=== PATIENT | male | born 1940 | race Two or more races ===

== ENCOUNTER 2020-11-07 09:00 | Outpatient (REF) | payer MEDICARE, SELFPAY ==
[2020-11-07 11:33] LABS: Hematocrit 43.8 % (42-52); Hemoglobin 14.7 g/dl (14.0-18.0); Mean Corpuscular HGB Conc 33.6 g/dl (31.0-36.0); Mean Corpuscular Hemoglobin 31.1 pg (27.0-33.0); Mean Corpuscular Volume 92.6 fL (80-98); Mean Platelet Volume 10.7 fL (9.4-12.4); Platelet Count 210 X10*3/uL (160-400); Red Blood Count 4.73 X10*6/uL (4.60-5.80); Red Cell Distribution Width 12.2 % (11.0-16.0)
[2020-11-07 11:43] LABS: Alanine Aminotransferase 24 U/L (0-40); Albumin Level 4.2 g/dL (3.5-5.0); Alkaline Phosphatase 71 U/L (39-117); Anion Gap 12 (12-20); Aspartate Amino Transferase 34 U/L (5-37); Bilirubin Total 0.9 mg/dL (0.0-1.0); Blood Urea Nitrogen 16 mg/dL (9-16); Calcium 8.9 mg/dL (8.4-10.2); Carbon Dioxide 30 mmol/L (22-29); Chloride 102 mmol/L (96-108); Cholesterol 162 mg/dL; Estimated Glomerular Filt Rate > 60; Glucose Fasting 96 mg/dL (60-99); HDL Cholesterol 44 mg/dL; LDL Cholesterol Calculated 95 mg/dl; Potassium 4.9 mmol/l (3.3-5.1); Sodium 139 mmol/L (135-145); Total Protein 6.8 g/dL (6.5-8.0); Triglycerides 119 mg/dL
== END 2020-11-07 09:01 | disposition home or self-care (01) ==
LOC: HO.HMGCLDS 09:00
PROVIDERS: PCP Internal Medicine; Visit Provider Internal Medicine
DX: E78.5 Hyperlipidemia, unspecified (principal); I10 Essential (primary) hypertension
CPT/HCPCS: 36415; 80053; 80061; 85027

== ENCOUNTER 2021-05-07 10:12 | Outpatient (REF) | payer MEDICARE, SELFPAY ==
--- NOTE | ~2021-05-07 | XR_ITS ---
EXAMINATION: XR CHEST CLINICAL INFORMATION: Chest pain COMPARISON: None TECHNIQUE: 2 views of the chest were obtained. FINDINGS: The lungs are well-expanded and clear of acute pneumonic process. The heart size and pulmonary vascularity is normal. There are old healed right posterior fifth, sixth, seventh and left posterior fourth, fifth, sixth rib fractures. No acute rib fractures seen.. XR/XR chest 2V IMPRESSION: Unremarkable chest exam. Bilateral multiple posterior rib healed fractures.
[2021-05-07 11:37] LABS: Hematocrit 41.1 % (42-52); Mean Corpuscular HGB Conc 34.1 g/dl (31.0-36.0); Mean Corpuscular Hemoglobin 31.2 pg (27.0-33.0); Mean Corpuscular Volume 91.5 fL (80-98); Mean Platelet Volume 10.6 fL (9.4-12.4); Platelet Count 237 X10*3/uL (160-400); Red Blood Count 4.49 X10*6/uL (4.60-5.80); Red Cell Distribution Width 12.6 % (11.0-16.0); White Blood Count 4.1 X10*3/uL (4.8-10.8)
[2021-05-07 11:54] LABS: Alanine Aminotransferase 21 U/L (0-40); Albumin Level 4.1 g/dL (3.5-5.0); Alkaline Phosphatase 82 U/L (39-117); Anion Gap 11 (12-20); Aspartate Amino Transferase 28 U/L (5-37); Bilirubin Total 0.6 mg/dL (0.0-1.0); Blood Urea Nitrogen 14 mg/dL (9-16); Calcium 9.2 mg/dL (8.4-10.2); Carbon Dioxide 29 mmol/L (22-29); Chloride 104 mmol/L (96-108); Estimated Glomerular Filt Rate > 60; Glucose Fasting 84 mg/dL (60-99); Potassium 4.2 mmol/L (3.3-5.1); Sodium 140 mmol/L (135-145); Total Protein 6.8 g/dL (6.5-8.0)
== END 2021-05-07 10:13 | disposition home or self-care (01) ==
LOC: HO.HMGCLDS 10:12
PROVIDERS: PCP Internal Medicine; Visit Provider Internal Medicine
DX: I10 Essential (primary) hypertension (principal); R07.9 Chest pain, unspecified; N40.0 Benign prostatic hyperplasia without lower urinary tract symptoms
CPT/HCPCS: 36415; 71046; 80048; 80053; 85027

== ENCOUNTER 2022-05-29 10:11 | Outpatient (REF) | payer MEDICARE, SELFPAY ==
[2022-05-29 11:37] LABS: MANUAL DIFF FLAG NO
[2022-05-29 11:49] LABS: Basophils Percent Auto 0.8 % (0-2); Eosinophils Absolute Auto 0.1 X10*3/uL (0.0-0.4); Eosinophils Percent Auto 2.4 % (0-4); Hematocrit 37.8 % (42.0-52.0); Hemoglobin 12.9 g/dl (14.0-18.0); Imm Gran Abs Auto 0.01 X10*3/uL (0.00-0.03); Imm Gran Pct Auto 0.3 % (0.0-0.4); Lymphocytes Absolute Auto 1.2 X10*3/uL (1.2-4.9); Lymphocytes Percent Auto 31.5 % (20-40); Mean Corpuscular HGB Conc 34.1 g/dl (31.0-36.0); Mean Corpuscular Hemoglobin 30.9 pg (27.0-33.0); Mean Corpuscular Volume 90.4 fL (80.0-98.0); Mean Platelet Volume 10.5 fL (9.4-12.4); Monocytes Absolute Auto 0.4 X10*3/uL (0.1-1.2); Neutrophils Absolute Auto 2.1 x10*3/uL (2.0-8.3); Platelet Count 194 X10*3/uL (160-400); Red Blood Count 4.18 X10*6/uL (4.60-5.80); Red Cell Distribution Width 12.2 % (11.0-16.0); White Blood Count 3.8 X10*3/uL (4.8-10.8)
[2022-05-29 12:31] LABS: TSH reflex Free T4 2.13 uIU/mL (0.32-4.0)
[2022-05-29 12:35] LABS: Alanine Aminotransferase 23 U/L (0-40); Albumin Level 4.4 g/dL (3.5-5.0); Alkaline Phosphatase 78 U/L (39-117); Anion Gap 17 (12-20); Aspartate Amino Transferase 34 U/L (5-37); Bilirubin Total 1.1 mg/dL (0.0-1.0); Blood Urea Nitrogen 20 mg/dL (9-16); Calcium 9.4 mg/dL (8.4-10.2); Carbon Dioxide 27 mmol/L (22-29); Chloride 105 mmol/L (96-108); Cholesterol 186 mg/dL; Estimated Glomerular Filt Rate > 60; Glucose Fasting 105 mg/dL (60-99); HDL Cholesterol 46 mg/dL; LDL Cholesterol Calculated 112 mg/dl; Potassium 4.7 mmol/L (3.3-5.1); Sodium 144 mmol/L (135-145); Total Protein 7.2 g/dL (6.5-8.0); Triglycerides 143 mg/dL
== END 2022-05-29 10:12 | disposition home or self-care (01) ==
LOC: HO.HMGCLDS 10:11
PROVIDERS: PCP Internal Medicine; Visit Provider Internal Medicine
DX: Z00.00 Encounter for general adult medical examination without abnormal findings (principal); E78.5 Hyperlipidemia, unspecified; I10 Essential (primary) hypertension
CPT/HCPCS: 36415; 80053; 80061; 84443; 85025

== ENCOUNTER 2022-06-11 07:24 | Outpatient (REF) | payer MEDICARE, SELFPAY ==
--- NOTE | ~2022-06-11 | MR_ITS ---
EXAMINATION: MR LUMBAR SPINE WITHOUT CONTRAST CLINICAL INFORMATION: 81-year-old with low back pain and left sided sciatica. COMPARISON: None TECHNIQUE: MRI of the lumbar spine was obtained using routine sequences without contrast. FINDINGS: Coronal Alignment: Slight mid lumbar dextrocurvature, minimally convexed to the right at L2-L3. Sagittal Alignment: Normal. Lumbosacral Junction: Normal. Five (5) nonrib-bearing lumbar-type vertebral bodies. Vertebral Bodies: Normal height. Disc Spaces and Endplates: Mild disc space height loss at L5-S1 with disc desiccation and right paravertebral spondylosis. Minimal disc space height loss at L4-L5 with disc desiccation and mild disc space height loss asymmetric to the left at L3-L4 with spondylosis and mild disc desiccation. Disc desiccation at L1-L2 and L2-L3 without significant disc space height loss with minor spondylosis at these levels and mild spondylosis of the T12-L1 and T11-T12. [id number]-[id number] disc space height loss asymmetric to the right at T11-T12 with disc desiccation. Spinal Canal: No abnormal developmental findings. Bone Marrow: No significant marrow-replacing process or bone marrow edema. There is a 1.1 cm benign vertebral hemangioma in the L1 vertebral body and a subcentimeter benign vertebral hemangioma in the T12 vertebral body. Conus Medullaris: Terminates at L1. Morphology and signal is normal. Intradural Nerve Roots: Within normal limits. L5-S1: Mild disc bulging and right posterolateral disc osteophyte complex noted with disc bulging contacting the S1 nerve root sleeves bilaterally and ventral thecal sac without nerve root compression or displacement. Mild ligament of flavum thickening noted with [id number] facet arthropathy right more the left without significant canal stenosis. Mild right-sided neural foraminal stenosis is noted without neural impingement. 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 L4-L5: Mild disc bulging and a small central annular fissure with slight flattening the ventral dural sac. Disc bulging contacts the origin of the left L5 nerve root sleeve. There is moderate facet arthropathy without significant canal stenosis. There is mild right-sided neural foraminal stenosis without neural impingement. L3-L4: There is mild disc bulging and a superimposed left subarticular extruded disc herniation with both cephalad and caudal migration with flattening of the ventral dural sac and marked narrowing of the left subarticular zone. Ligamentum flavum thickening and moderate bilateral facet hypertrophic changes are noted with mild central canal narrowing. There is impingement on the traversing left L4 nerve root in the subarticular recess. Mild bilateral foraminal narrowing is also noted without exiting neural impingement. L2-L3: Small bilateral subarticular to foraminal disc protrusions are noted with mild facet arthropathy without significant canal stenosis. There is mild left-sided foraminal narrowing without neural impingement. L1-L2: Normal disc contour. Mild facet hypertrophic changes bilaterally and mild ligamentum flavum thickening without significant canal or neuroforaminal stenosis. There are perineural cysts in the neural foramina on the left in the visualized lower thoracic spine. Paraspinal/Retroperitoneal: Marked prostatic enlargement indenting and elevating the bladder base with bladder wall thickening. There is a 3.5 cm slightly T1 hyperintense intense, T2 hypointense mass arising from the medial cortex of the lower pole the left kidney unchanged in size from CT abdomen of 09/14/2019. Partially imaged complex-appearing cystic structure arising from the posterolateral cortex of the left kidney measuring 1.7 cm likely corresponding to a cystic lesion noted on previous CT. Partially imaged 2 cm exophytic simple-appearing cyst arising from the anterolateral cortex of the upper pole of the left kidney which has increased in size from previous CT. Partially imaged 1.6 cm simple-appearing cortical cyst posterior cortex right mid kidney increased in size from previous exam. The paravertebral soft tissues appear grossly unremarkable. MR/MR lumbar spine wo con IMPRESSION: 1. Multilevel discogenic degenerative changes and spondylosis as described above, with multilevel disc bulging and a posterior element hypertrophic degenerative changes. Superimposed left subarticular extruded disc herniation at L3-L4 with impingement on the traversing left L4 nerve root in the subarticular recess with mild central canal stenosis at this level. 2. Mild degrees of multilevel foraminal narrowing as described above without exiting neural impingement. 3. Indeterminate left renal mass unchanged in size from previous CT abdomen and multiple simple-appearing cysts in both kidneys, and 1 complex appearing cyst on the left. Follow-up as per clinical indications. 4. Prostatic enlargement indenting and elevating the base of the urinary bladder and possible bladder wall thickening.
== END 2022-06-11 07:25 | disposition home or self-care (01) ==
LOC: HO.MRI 07:24
PROVIDERS: Visit Provider Internal Medicine
DX: M54.30 Sciatica, unspecified side (principal)
CPT/HCPCS: 72148

== ENCOUNTER → 2022-06-12 10:15 | Outpatient (REF) | payer MEDICARE, SELFPAY ==
--- NOTE | 2022-06-12 10:45 | CA_ITS ---
Transthoracic Echocardiogram Patient (Last, First, Middle): DevanteOct, Gender: Male Date of : 1940 Age: 81 Procedure Date: 06/12/2022 Procedure Type: Transthoracic Echocardiogram Location: OP Height: 170.18 cm Weight: 79.38 kg BSA: 1.91 m2 Heart Rate: 66 bpm BP: 128 / 85 mmHg Analyzer Sales: TONIO Referring MD: Norah Louie MD Symptoms: R07.9 - Chest pain, unspecified Study Quality: Fair ECG Rhythm: Sinus Conclusions: - The left ventricular systolic function is normal. The visually estimated ejection fraction is between 55-60%. - There is moderately increased left ventricular wall thickness. - No obvious valvular pathology seen on this study. Findings Left Ventricle Normal left ventricular cavity size. There is moderately increased left ventricular wall thickness. The left ventricular systolic function is normal. The visually estimated ejection fraction is between 55-60%. There is no evidence of regional wall motion abnormalities. E/E prime ratio is between 8 and 15 consistent with indeterminate filling pressures. Evidence suggests grade I (mild) diastolic dysfunction. Right Ventricle Normal right ventricular cavity size and systolic function. Atria Both atria are normal in size. Aortic Valve There is a normal trileaflet aortic valve. There is mild calcification of the aortic valve. There is no aortic valve stenosis. There is no aortic valve regurgitation. Mitral Valve The mitral valve appears normal. There is trace mitral valve regurgitation. There is no mitral valve stenosis. Pulmonic Valve The pulmonic valve is likely normal. Tricuspid Valve Normal tricuspid valve structure. There is no tricuspid valve regurgitation. Tricuspid regurgitation envelope is inadequate for calculation of right ventricular systolic pressure. Great Vessels The asc aorta is normal in size. Venous The inferior vena cava is normal in size and collapses greater than 50% with inspiration. Pericardium/Pleural There is no evidence of pericardial effusion. Prior Study Comparison No significant change compared to prior study dated: 09/02/2019. Recommendations, Care & Conclusions No obvious valvular pathology seen on this study. Measurements 2D Linear Measurements IVSd: 1.42 0.6-0.9/0.6-1.0 cm LVIDd: 3.09 3.9-5.3/4.2-5.9 cm LVIDd Index: 1.62 2.4-3.2/2.2-3.1 cm/m2 LVIDs: 1.82 2.0-3.6 cm LVPWd: 1.39 0.7-1.1 cm LA Diam: 3.00 2.7-3.8/3.0-4.0 cm LAIDs Index: 1.57 1.5-2.3 cm/m2 LV Mass: 182.91 67-162/88-224 g LV Mass Index: 95.76 43-95/49-115 g/m2 LVOT Diam: 2.10 3.0+(-)1.3 cm 2D Systolic Function EF 4C: 51.10 >55% EF 2C: 57.30 >55% EF BiP: 52.30 >55% Mitral Valve MV Pk E: 0.78 MV PK A: 1.18 MV Decel Time: 323.00 E/A: 0.70 E'Lateral: 5.98 E'Medial: 5.44 E/E' Med: 14.30 E/E' Lat: 13.00 PHT: 95.00 MVA PHT: 2.32 Decel Amador: 2.41 Aortic Valve AoV Pk Irving: 1.15 AoV Mn Irving: 0.84 AoV VTI: 0.25 AoV Pk Grad: 5.00 Aov Mn Grad: 3.00 GISSELLE Cont.VTI: 2.53 LVOT LVOT Pk Irving: 0.89 LVOT Mn Irving: 0.64 LVOT VTI: 0.19 LVOT Pk Grad: 3.00 LVOT Mn Grad: 2.00 LVOT Diam: 2.10 LVOT Area: 3.46 Diastolic Function MV Pk E: 0.78 MV Pk A: 1.18 E/A: 0.70 E'Medial: 5.44 E/E' Med: 14.30 E' Laterial: 5.98 E/E' Lat: 13.00 Right Ventricle TAPSE (mm): 19.50 TVS' Irving: 11.10 Tricuspid Valve RA Press: 3.00 Great Vessels Aorta Sinus of Valsalva: 3.50 2.0-3.5 cm Ao Asc: 3.30 2.1-3.4 cm Pulmonary Valve PV Pk Irving: 1.18 Peak PV Grad: 6.00 Updated in Other Vendor System with Status of Final Teodoro Benz MD electronically signed on 06/13/2022 12:54:35 PM with status of Final
== END ==
LOC: HO.CARD 10:15
PROVIDERS: PCP Internal Medicine; Visit Provider Internal Medicine
DX: R07.9 Chest pain, unspecified (principal); I10 Essential (primary) hypertension
CPT/HCPCS: 93306

== ENCOUNTER 2023-05-25 08:24 | Outpatient (REF) | payer MEDICARE, SELFPAY ==
[2023-05-25 11:24] LABS: MANUAL DIFF FLAG NO
[2023-05-25 11:49] LABS: Basophils Absolute Auto 0.1 X10*3/uL (0.0-0.2); Basophils Percent Auto 1.1 % (0-2); Eosinophils Absolute Auto 0.2 X10*3/uL (0.0-0.4); Eosinophils Percent Auto 3.5 % (0-4); Hematocrit 41.1 % (42.0-52.0); Hemoglobin 13.8 g/dl (14.0-18.0); Imm Gran Abs Auto 0.02 X10*3/uL (0.00-0.03); Imm Gran Pct Auto 0.4 % (0.0-0.4); Lymphocytes Absolute Auto 1.7 X10*3/uL (1.2-4.9); Lymphocytes Percent Auto 36.4 % (20-40); Mean Corpuscular HGB Conc 33.6 g/dl (31.0-36.0); Mean Corpuscular Hemoglobin 30.9 pg (27.0-33.0); Mean Corpuscular Volume 92.2 fL (80.0-98.0); Mean Platelet Volume 10.5 fL (9.4-12.4); Monocytes Absolute Auto 0.5 X10*3/uL (0.1-1.2); Monocytes Percent Auto 9.9 % (2-11); Neutrophils Absolute Auto 2.2 x10*3/uL (2.0-8.3); Neutrophils Percent Auto 48.7 % (45-73); Platelet Count 195 X10*3/uL (160-400); Red Blood Count 4.46 X10*6/uL (4.60-5.80); Red Cell Distribution Width 12.8 % (11.0-16.0); White Blood Count 4.6 X10*3/uL (4.8-10.8)
[2023-05-25 12:14] LABS: Alanine Aminotransferase 27 U/L (0-40); Albumin Level 3.9 g/dL (3.5-5.0); Alkaline Phosphatase 77 U/L (39-117); Anion Gap 13 (12-20); Aspartate Amino Transferase 33 U/L (5-37); Bilirubin Total 0.9 mg/dL (0.0-1.0); Blood Urea Nitrogen 23 mg/dL (9-16); Calcium 9.1 mg/dL (8.4-10.2); Carbon Dioxide 24 mmol/L (22-29); Chloride 106 mmol/L (96-108); Cholesterol 168 mg/dL; Estimated Glomerular Filt Rate > 60; Glucose Fasting 97 mg/dL (60-99); HDL Cholesterol 45 mg/dL; LDL Cholesterol Calculated 103 mg/dl; Potassium 4.1 mmol/L (3.3-5.1); Sodium 139 mmol/L (135-145); Total Protein 6.8 g/dL (6.5-8.0); Triglycerides 103 mg/dL
== END 2023-05-25 08:25 | disposition home or self-care (01) ==
LOC: HO.HMGCLDS 08:24
PROVIDERS: PCP Internal Medicine; Visit Provider Internal Medicine
DX: Z00.00 Encounter for general adult medical examination without abnormal findings (principal); E78.5 Hyperlipidemia, unspecified; I10 Essential (primary) hypertension
CPT/HCPCS: 36415; 80053; 80061; 85025

== ENCOUNTER 2023-07-10 09:29 | Outpatient (AMB) | payer OTHER, SELFPAY ==
[2023-07-10 09:33] VITALS: BP 130/70; PULSE 65; O2SAT 96; BMI 29.4
--- NOTE | 2023-07-10 09:33 | A.OFFPC_ITS ---
Vital Signs 07/10/23 09:33 Height 5 ft 6 in Weight 182 lb BMI 29.4 BP 130/70 Blood Pressure Location Rt brachial Position Sitting Pulse 65 Pulse Source Pulse Oximeter Pulse Oximetry (%) 96 Oxygen Delivery Method Room Air Intake Visit Reasons: PE Intake Note: Pt is here today for PE. Allergies atorvastatin [Lipitor] Adverse Reaction (Unknown, Verified 07/10/23 09:41) muscle pain Medication List - Last Reconciled 07/10/23 by Norah Louie MD acetaminophen (Tylenol Extra Strength) 500 mg PO Q6H PRN finasteride 5 mg PO DAILY furosemide 20 mg PO BID ibuprofen 600 mg PO Q8H PRN metoprolol succinate ER 25 mg PO DAILY olmesartan 20 mg PO DAILY pravastatin 40 mg PO DAILY sertraline 50 mg PO DAILY terazosin 10 mg PO DAILY Tobacco use date assessed: 07/10/23 Fall risk assessment: No Falls in past year Last assessed Fall Risk: 07/10/23 Dental Screening Dental Screen Date: 07/10/23 Did you have a dental visit in the last 12 months?: No Did you have a dental problem in the last 6 months where you did not have access to dental care?: No Was dental information given to patient?: Patient declined HPI PE HPI Details Pt presents for PE. [facility] Medical History Chest pain Venous stasis of lower extremity Hyperlipidemia HTN (hypertension) BPH (benign prostatic hyperplasia) Surgical History H/O colonoscopy No pertinent past surgical history Family History Father No problems noted. Mother No problems noted. Social History Housing: House Patient Tobacco Use Status: Never used Tobacco e-Cigarette/Vaping Use: Never Used Second Hand Smoke Exposure: No service: No Current occupational status: retired Cognitive needs: No Hearing needs: Yes Vision needs: Yes Questionnaire Thrive Questionnaire Date Thrive assessed: 01/30/23 AUDIT C Alcohol Use Questionnaire (AUDIT-C) 1. How often do you have a drink containing alcohol?: Monthly or less 2. How many drinks containing alcohol do you have on a typical day when you are drinking?: 1 or 2 3. How often do you have six or more drinks on one occasion?: Never Total Score: 1 CHICO-7 AMB Questionnaire CHICO-7 Date CHICO - 7 assessed: 01/30/23 Source: Developed by Drs. Kristofer Tatum, Francy Covington, Akash Chávez and colleagues, with an educational lubna from [employer]. Review of Systems Const All systems reviewed & are unremarkable except as noted in HPI and below Reports no additional complaints Eyes Reports no additional complaints ENT Reports no additional complaints Card Reports no additional complaints Resp Reports no additional complaints GI Reports no additional complaints Reports no additional complaints Physical exam (Primary Care) Vital Signs: Last Vital Signs Pulse 65 07/10/23 09:33 BP 130/70 07/10/23 09:33 Pulse Ox 96 07/10/23 09:33 Oxygen Delivery Method Room Air 07/10/23 09:33 BMI result Body Mass Index 29.4 Tobacco/Smoking Status: Tobacco use Status Tobacco use date assessed 07/10/23 07/10/23 09:45 Patient Tobacco Use Status Never used Tobacco 07/10/23 09:45 e-Cigarette/Vaping Use Never Used 07/10/23 09:33 Thrive Assessment: Date of Thrive Assessment Date Thrive assessed 01/30/23 07/10/23 09:33 Const General: no acute distress HENMT Head: Yes normal to inspection Ears: hearing grossly normal bilaterally General nose exam: Normal external nose present Face and sinus: Yes normal facial exam Throat: Yes posterior oropharynx normal Eyes General: appearance normal, both eyes and all related structures Neck Neck: Yes no lymphadenopathy and Yes supple Resp Effort & Inspection: normal respiratory effort Auscultation: clear to auscultation bilaterally Cardio Rhythm: regular rhythm Heart sounds: S1 normal heart sound present and S2 normal heart sound present GI Inspection: Yes normal to inspection Palpation (GI): Soft to palpation Percussion: Yes normal to percussion Auscultation: normal bowel sounds Assessment and Plan Assessment & Plan (1) Annual physical exam: Code(s): Z00.00 - Encounter for general adult medical examination without abnormal findings Plan: well balanced diet, regular exercise (2) Hyperlipidemia: Code(s): E78.5 - Hyperlipidemia, unspecified Plan: cont statin (3) HTN (hypertension): Code(s): I10 - Essential (primary) hypertension Plan: cont meds (4) BPH (benign prostatic hyperplasia): Comment: Dr. Valdivia Code(s): N40.0 - Benign prostatic hyperplasia without lower urinary tract symptoms Plan: f/u with urology Orders: Orders Comprehensive [place]. Panel Fast 365 Days E78.5 - Hyperlipidemia, unspecified, I10 - Essential (primary) hypertension, Z00.00 - Encounter for general adult medical examination without abnormal findings Lipid Panel 365 Days E78.5 - Hyperlipidemia, unspecified, I10 - Essential (primary) hypertension, Z00.00 - Encounter for general adult medical examination without abnormal findings Complete Blood Count Auto Diff 365 Days E78.5 - Hyperlipidemia, unspecified, I10 - Essential (primary) hypertension, Z00.00 - Encounter for general adult m edical examination without abnormal findings Medications: Refilled olmesartan 20 mg PO DAILY 90 tabs 3RF pravastatin 40 mg PO DAILY 90 tabs 3RF E78.5 - Hyperlipidemia, unspecified furosemide 20 mg PO BID 180 tabs 3RF I10 - Essential (primary) hypertension sertraline 50 mg PO DAILY 90 tabs 3RF Coding Level of Care Code Est Pt Prev Care >65y(75196) Diagnoses Annual physical exam Z00.00 Hyperlipidemia E78.5 HTN (hypertension) I10 BPH (benign prostatic hyperplasia) N40.0
== END 2023-07-10 10:13 | disposition home or self-care (01) ==
PROVIDERS: PCP Internal Medicine; Visit Provider Internal Medicine
DX: Z00.00 Encounter for general adult medical examination without abnormal findings (principal); E78.5 Hyperlipidemia, unspecified; I10 Essential (primary) hypertension; N40.0 Benign prostatic hyperplasia without lower urinary tract symptoms
CPT/HCPCS: 99397

== ENCOUNTER 2024-02-05 08:42 | Outpatient (AMB) | payer OTHER, SELFPAY ==
[2024-02-05 08:45] VITALS: BP 126/68; PULSE 82; O2SAT 97; BMI 28.6
--- NOTE | 2024-02-05 08:45 | A.OFFPC_ITS ---
Vital Signs 02/05/24 08:45 Height 5 ft 6 in Weight 177 lb BMI 28.6 BP 126/68 Blood Pressure Location Lt brachial Position Sitting Pulse 82 Pulse Source Pulse Oximeter Pulse Oximetry (%) 97 Oxygen Delivery Method Room Air Intake Visit Reasons: BP elevated in [place] Intake Note: Pt is here today to f/u elevated b/p Allergies atorvastatin [Lipitor] Adverse Reaction (Unknown, Verified 02/05/24 08:46) muscle pain Medication List - Last Reconciled 02/05/24 by Norah Louie MD acetaminophen (Tylenol Extra Strength) 500 mg PO Q6H PRN finasteride 5 mg PO DAILY hydrochlorothiazide 25 mg PO DAILY ibuprofen 600 mg PO Q8H PRN metoprolol succinate ER 25 mg PO DAILY olmesartan 20 mg PO DAILY pravastatin 40 mg PO DAILY sertraline 50 mg PO DAILY terazosin 10 mg PO DAILY Tobacco use date assessed: 02/05/24 Fall risk assessment: No Falls in past year Last assessed Fall Risk: 02/05/24 Dental Screening Dental Screen Date: 02/05/24 Did you have a dental visit in the last 12 months?: No Was dental information given to patient?: Patient declined HPI BP elevated in [place] HPI Details Patient presents for the follow-up on hypertension BPH and hyperlipidemia chronic anxiety stable on current medications PFSH Medical History Chest pain Venous stasis of lower extremity Hyperlipidemia HTN (hypertension) BPH (benign prostatic hyperplasia) Surgical History H/O colonoscopy No pertinent past surgical history Family History Father No problems noted. Mother No problems noted. Social History Housing: House Patient Tobacco Use Status: Never used Tobacco e-Cigarette/Vaping Use: Never Used Second Hand Smoke Exposure: No service: No Current occupational status: retired Cognitive needs: No Hearing needs: Yes Vision needs: Yes Questionnaire Thrive Questionnaire Date Thrive assessed: 01/30/23 CHICO-7 AMB Questionnaire CHICO-7 Date CHICO - 7 assessed: 01/30/23 Source: Developed by Drs. Kristofer LFrancy Jasso, Akash Chávez and colleagues, with an educational lubna from [employer]. Review of Systems Const All systems reviewed & are unremarkable except as noted in HPI and below ENT Reports no additional complaints Card Reports no additional complaints Resp Reports no additional complaints GI Reports no additional complaints Physical exam (Primary Care) Vital Signs: Last Vital Signs Pulse 82 02/05/24 08:45 BP 126/68 02/05/24 08:45 Pulse Ox 97 02/05/24 08:45 Oxygen Delivery Method Room Air 02/05/24 08:45 BMI result Body Mass Index 28.6 Tobacco/Smoking Status: Tobacco use Status Tobacco use date assessed 02/05/24 02/05/24 08:47 Patient Tobacco Use Status Never used Tobacco 02/05/24 08:47 e-Cigarette/Vaping Use Never Used 02/05/24 08:47 Thrive Assessment: Date of Thrive Assessment Date Thrive assessed 01/30/23 02/05/24 08:47 Const General: healthy appearing HENMT Ears: hearing grossly normal bilaterally Mouth: Normal oral and palatal mucosa present Eyes General: appearance normal, both eyes and all related structures Neck Neck: Yes supple Resp Effort & Inspection: normal respiratory effort Auscultation: clear to auscultation bilaterally Cardio Rhythm: regular rhythm Heart sounds: S1 normal heart sound present and S2 normal heart sound present GI Inspection: Yes normal to inspection Palpation (GI): Soft to palpation Percussion: Yes normal to percussion Auscultation: normal bowel sounds Assessment and Plan Assessment & Plan (1) Hyperlipidemia: Code(s): E78.5 - Hyperlipidemia, unspecified Plan: Continue statin (2) HTN (hypertension): Code(s): I10 - Essential (primary) hypertension Plan: Continue current medications (3) Prostate CA: Comment: s/p Casodex and RTx 02/07, f/u PVU, undetected PSA 05/09 Code(s): C61 - Malignant neoplasm of prostate Plan: Follow-up with urology (4) Anxiety: Code(s): F41.9 - Anxiety disorder, unspecified Plan: Continue Zoloft Orders: Orders Complete Blood Count Auto Diff Today C61 - Malignant neoplasm of prostate, E78.5 - Hyperlipidemia, unspecified, I10 - Essential (primary) hypertension Lipid Panel Today C61 - Malignant neoplasm of prostate, E78.5 - Hyperlipidemia, unspecified, I10 - Essential (primary) hypertension UA w Microscopic Today C61 - Malignant neoplasm of prostate, E78.5 - Hyperlipidemia, unspecified, I10 - Essential (primary) hypertension Comprehensive [place]. Panel Fast Today C61 - Malignant neoplasm of prostate, E78.5 - Hyperlipidemia, unspecified, I10 - Essential (primary) hypertension Medications: New hydrochlorothiazide 25 mg PO DAILY 90 tabs 3RF Discontinued furosemide Discontinued Reason: Doctor's Order 20 mg PO BID 180 tabs 3RF I10 - Essential (primary) hypertension Coding Level of Care Code Est Pt Level 4 (97729) Diagnoses Hyperlipidemia E78.5 HTN (hypertension) I10 Prostate CA C61 Anxiety F41.9
== END 2024-02-05 09:27 | disposition home or self-care (01) ==
PROVIDERS: PCP Internal Medicine; Visit Provider Internal Medicine
DX: E78.5 Hyperlipidemia, unspecified (principal); I10 Essential (primary) hypertension; C61 Malignant neoplasm of prostate; F41.9 Anxiety disorder, unspecified
CPT/HCPCS: 99214

== ENCOUNTER 2024-02-05 09:28 | Outpatient (REF) | payer OTHER, SELFPAY ==
[2024-02-05 10:25] LABS: MANUAL DIFF FLAG NO
[2024-02-05 10:39] LABS: Appearance Urine Clear; Color Urine Yellow; Glucose Urine UA Negative (Negative); Leukocyte Esterase Urine Negative (Negative); Nitrite Urine Negative (Negative); PH 6.5 (5.0-9.0); Specific Gravity - Urine 1.015 (1.005-1.025); Urine Blood Negative (Negative); Urine Ketones Negative (Negative); Urine Protein Negative (Neg-Trace)
[2024-02-05 10:45] LABS: Basophils Percent Auto 0.9 % (0-2); Eosinophils Absolute Auto 0.1 X10*3/uL (0.0-0.4); Eosinophils Percent Auto 2.5 % (0-4); Hematocrit 43.4 % (42.0-52.0); Hemoglobin 14.9 g/dl (14.0-18.0); Imm Gran Abs Auto 0.01 X10*3/uL (0.00-0.03); Imm Gran Pct Auto 0.2 % (0.0-0.4); Lymphocytes Absolute Auto 1.6 X10*3/uL (1.2-4.9); Lymphocytes Percent Auto 36.1 % (20-40); Mean Corpuscular HGB Conc 34.3 g/dl (31.0-36.0); Mean Corpuscular Hemoglobin 31.8 pg (27.0-33.0); Mean Corpuscular Volume 92.5 fL (80.0-98.0); Mean Platelet Volume 10.3 fL (9.4-12.4); Monocytes Absolute Auto 0.3 X10*3/uL (0.1-1.2); Monocytes Percent Auto 7.4 % (2-11); Neutrophils Absolute Auto 2.3 x10*3/uL (2.0-8.3); Neutrophils Percent Auto 52.9 % (45-73); Platelet Count 212 X10*3/uL (160-400); Red Blood Count 4.69 X10*6/uL (4.60-5.80); White Blood Count 4.3 X10*3/uL (4.8-10.8)
[2024-02-05 10:47] LABS: Bacteria Urine None Seen (None Seen); Hyaline Casts Urine 0-2 /LPF (0-2); RBC Urine 0-2 /HPF (0-2); Squamous Epithelial Cell Urine 0-2 /HPF (0-2); WBC Urine 0-5 /HPF (0-5)
[2024-02-05 11:58] LABS: Alanine Aminotransferase 24 U/L (0-40); Albumin Level 4.3 g/dL (3.5-5.0); Alkaline Phosphatase 80 U/L (39-117); Anion Gap 11 (12-20); Aspartate Amino Transferase 35 U/L (5-37); Bilirubin Total 0.9 mg/dL (0.0-1.0); Blood Urea Nitrogen 17 mg/dL (9-16); Calcium 9.4 mg/dL (8.4-10.2); Carbon Dioxide 29 mmol/L (22-29); Chloride 104 mmol/L (96-108); Cholesterol 184 mg/dL (<200); Estimated Glomerular Filt Rate > 60; Glucose Fasting 101 mg/dL (60-99); HDL Cholesterol 48 mg/dL (>40); LDL Cholesterol Calculated 114 mg/dL (<100); Potassium 4.3 mmol/L (3.3-5.1); Sodium 140 mmol/L (135-145); Total Protein 7.2 g/dL (6.5-8.0); Triglycerides 110 mg/dL (<150)
== END 2024-02-05 09:29 | disposition home or self-care (01) ==
LOC: HO.HMGCLDS 09:28
PROVIDERS: PCP Internal Medicine; Visit Provider Internal Medicine
DX: I10 Essential (primary) hypertension (principal); C61 Malignant neoplasm of prostate; E78.5 Hyperlipidemia, unspecified
CPT/HCPCS: 36415; 80053; 80061; 81001; 85025

== ENCOUNTER 2024-07-11 10:32 | Outpatient (AMB) | payer OTHER, SELFPAY ==
--- NOTE | 2024-07-11 10:35 | A.OFFPC_ITS ---
Vital Signs 07/11/24 10:36 Height 5 ft 6 in Weight 181 lb BMI 29.2 BP 122/74 Blood Pressure Location Rt brachial Position Sitting Pulse 74 Pulse Source Pulse Oximeter Pulse Oximetry (%) 98 Oxygen Delivery Method Room Air Intake Visit Reasons: PE Intake Note: Pt is here today for PE. Allergies atorvastatin [Lipitor] Adverse Reaction (Unknown, Verified 07/11/24 10:39) muscle pain Medication List - Last Reconciled 07/11/24 by Norah Louie MD acetaminophen (Tylenol Extra Strength) 500 mg PO Q6H PRN finasteride 5 mg PO DAILY hydrochlorothiazide 25 mg PO DAILY ibuprofen 600 mg PO Q8H PRN metoprolol succinate ER 25 mg PO DAILY olmesartan 20 mg PO DAILY pravastatin 40 mg PO DAILY sertraline 50 mg PO DAILY terazosin 10 mg PO DAILY Tobacco use date assessed: 07/11/24 Fall risk assessment: No Falls in past year Last assessed Fall Risk: 07/11/24 Dental Screening Dental Screen Date: 02/05/24 HPI PE HPI Details Patient presents for physical. Hypertension and hyperlipidemia are stable on current medications [facility] Medical History Chest pain Venous stasis of lower extremity Hyperlipidemia HTN (hypertension) BPH (benign prostatic hyperplasia) Surgical History H/O colonoscopy No pertinent past surgical history Family History Father No problems noted. Mother No problems noted. Social History Housing: House Patient Tobacco Use Status: Never used Tobacco e-Cigarette/Vaping Use: Never Used Second Hand Smoke Exposure: No service: No Current occupational status: retired Cognitive needs: No Hearing needs: Yes Vision needs: Yes Questionnaire PHQ-9 Over the last 2 weeks, how often have you been bothered by any of the following problems? 1. Little interest or pleasure in doing things: not at all 2. Feeling down, depressed, or hopeless: not at all 3. Trouble falling or staying asleep, or sleeping too much: not at all 4. Feeling tired or having little energy: not at all 5. Poor appetite or overeating: not at all 6. Feeling bad about yourself - or that you are a failure or have let yourself o r your family down: not at all 7. Trouble concentrating on things, such as reading the newspaper or watching television: not at all 8. Moving or speaking so slowly that other people could have noticed. Or the opposite - being so fidgety or restless that you have been moving around a lot more than usual: not at all 9. Thoughts that you would be better off or of hurting yourself in some way: not at all Total score: 0 Depression Screening Interpretation: Negative Depression Screening Done: Yes 32468 - PHQ-9 Billing: Yes Source: Developed by Drs. Kristofer Tatum, Francy Covington, Akash nichols nd colleagues, with an educational lubna from [employer] Thrive Questionnaire Date Thrive assessed: 07/11/24 I am a: Patient What is your living situation today?: I have a steady place to live Within the past 12 months, did the food you bought not last and you didn't have the money to get more?: Never true Within the past 12 months, did you worry whether your food would run out before you got money to buy more?: Never true Do you have trouble paying for medicines?: No Do you have trouble getting transportation to medical appointments?: No Do you have trouble paying your heating and electricity bill?: No Do you have trouble taking care of your child, family member or friend?: No Do you have trouble with day-to-day activities such as bathing, preparing meals, shopping, managing finances, etc.?: No Are you currently unemployed and looking for a job?: No Are you interested in more education?: No Please select the resources that you would like help with: None THRIVE Score: 0 AUDIT C Alcohol Use Questionnaire (AUDIT-C) 1. How often do you have a drink containing alcohol?: Monthly or less 2. How many drinks containing alcohol do you have on a typical day when you are drinking?: 1 or 2 3. How often do you have six or more drinks on one occasion?: Never Total Score: 1 CHICO-7 AMB Questionnaire CHICO-7 Date CHICO - 7 assessed: 07/11/24 Feeling nervous, anxious, or on edge: 0 = Not at all Not being able to stop or control worryin = Not at all Worrying too much about different things: 0 = Not at all Trouble relaxin = Not at all Being so restless that it is hard to sit still: 0 = Not at all Becoming easily annoyed or irritable: 0 = Not at all Feeling afraid as if something awful might happen: 0 = Not at all Total CHICO-7 score (0-4 normal; 5-9 mild; 10-14 moderate; 15-21 severe): 0 Source: Developed by Drs. Kristofer Tatum, Francy Covington, Akash Chávez and colleagues, with an educational lubna from [employer] CHICO-7 Assessment Billing CHICO-7 Assessment Tool: CHICO-7 Assessment 69573 Review of Systems Const All systems reviewed & are unremarkable except as noted in HPI and below ENT Reports no additional complaints Card Reports no additional complaints Resp Reports no additional complaints GI Reports no additional complaints Reports no additional complaints Physical exam (Primary Care) Vital Signs: Last Vital Signs Pulse 74 07/11/24 10:36 BP 122/74 07/11/24 10:36 Pulse Ox 98 07/11/24 10:36 Oxygen Delivery Method Room Air 07/11/24 10:36 BMI result Body Mass Index 29.2 Tobacco/Smoking Status: Tobacco use Status Tobacco use date assessed 07/11/24 07/11/24 10:42 Patient Tobacco Use Status Never used Tobacco 07/11/24 10:42 e-Cigarette/Vaping Use Never Used 07/11/24 10:42 PHQ-9: PHQ-9 Score PHQ-9: Total score 0 07/11/24 10:42 Depression Screening Interpretation: Negative Thrive Assessment: Date of Thrive Assessment Date Thrive assessed 07/11/24 07/11/24 10:42 Const General: no acute distress HENMT Head: Yes normal to inspection Face and sinus: Yes normal facial exam Throat: Yes posterior oropharynx normal Eyes General: appearance normal, both eyes and all related structures Resp Effort & Inspection: normal respiratory effort Auscultation: clear to auscultation bilaterally Cardio Rhythm: regular rhythm Heart sounds: S1 normal heart sound present and S2 normal heart sound present GI Inspection: Yes normal to inspection Palpation (GI): Soft to palpation Percussion: Yes normal to percussion Auscultation: normal bowel sounds Assessment and Plan Assessment & Plan (1) Hyperlipidemia: Code(s): E78.5 - Hyperlipidemia, unspecified Plan: Continue statin (2) HTN (hypertension): Code(s): I10 - Essential (primary) hypertension Plan: Continue current medications (3) Prostate CA: Comment: s/p Casodex and RTx 02/07, f/u PVU, undetected PSA 05/09 Code(s): C61 - Malignant neoplasm of prostate Plan: Follow-up with Urology (4) Annual physical exam: Code(s): Z00.00 - Encounter for general adult medical examination without abnormal findings Plan: Well-balanced diet regular physical activity discussed with the patient he is going to [place] in the winter and will follow-up in 7 months. Orders: Orders Comprehensive [place]. Panel Fast Today E78.5 - Hyperlipidemia, unspecified, I10 - Essential (primary) hypertension Complete Blood Count Auto Diff Today E78.5 - Hyperlipidemia, unspecified, I10 - Essential (primary) hypertension Lipid Panel Today E78.5 - Hyperlipidemia, unspecified, I10 - Essential (primary) hypertension Coding Level of Care Code Est Pt Prev Care >65y(84518) Diagnoses Hyperlipidemia E78.5 HTN (hypertension) I10 Prostate CA C61 Annual physical exam Z00.00 Additional Codes CHICO-7 Assessment Billing - CHICO-7 Assessment Tool: CHICO-7 Assessment 19689 ([id number])
[2024-07-11 10:36] VITALS: BP 122/74; PULSE 74; O2SAT 98; BMI 29.2
== END 2024-07-11 11:11 | disposition home or self-care (01) ==
PROVIDERS: PCP Internal Medicine; Visit Provider Internal Medicine
DX: E78.5 Hyperlipidemia, unspecified (principal); I10 Essential (primary) hypertension; C61 Malignant neoplasm of prostate; Z00.00 Encounter for general adult medical examination without abnormal findings

== ENCOUNTER → 2024-07-11 10:32 | Outpatient (BNVA) | payer OTHER, SELFPAY | PROVIDERS: PCP Internal Medicine; Visit Provider Internal Medicine | DX: Z00.00 Encounter for general adult medical examination without abnormal findings (principal); E78.5 Hyperlipidemia, unspecified; C61 Malignant neoplasm of prostate; I10 Essential (primary) hypertension | CPT/HCPCS: 96127 ==

== ENCOUNTER 2024-07-11 11:11 | Outpatient (REF) | payer OTHER, SELFPAY ==
[2024-07-11 13:29] LABS: MANUAL DIFF FLAG NO
[2024-07-11 13:36] LABS: Basophils Percent Auto 0.4 % (0-2); Eosinophils Absolute Auto 0.1 X10*3/uL (0.0-0.4); Eosinophils Percent Auto 2.1 % (0-4); Hematocrit 43.9 % (42.0-52.0); Hemoglobin 15.3 g/dl (14.0-18.0); Imm Gran Abs Auto 0.02 X10*3/uL (0.00-0.03); Imm Gran Pct Auto 0.4 % (0.0-0.4); Lymphocytes Absolute Auto 1.6 X10*3/uL (1.2-4.9); Lymphocytes Percent Auto 33.6 % (20-40); Mean Corpuscular HGB Conc 34.9 g/dl (31.0-36.0); Mean Corpuscular Hemoglobin 31.6 pg (27.0-33.0); Mean Corpuscular Volume 90.7 fL (80.0-98.0); Mean Platelet Volume 10.3 fL (9.4-12.4); Monocytes Absolute Auto 0.4 X10*3/uL (0.1-1.2); Monocytes Percent Auto 8.7 % (2-11); Neutrophils Absolute Auto 2.6 x10*3/uL (2.0-8.3); Neutrophils Percent Auto 54.8 % (45-73); Platelet Count 205 X10*3/uL (160-400); Red Blood Count 4.84 X10*6/uL (4.60-5.80); White Blood Count 4.7 X10*3/uL (4.8-10.8)
[2024-07-11 14:12] LABS: Alanine Aminotransferase 31 U/L (0-40); Albumin Level 4.3 g/dL (3.5-5.0); Alkaline Phosphatase 71 U/L (39-117); Anion Gap 11 (12-20); Aspartate Amino Transferase 42 U/L (5-37); Bilirubin Total 1.3 mg/dL (0.0-1.0); Blood Urea Nitrogen 17 mg/dL (9-16); Calcium 9.2 mg/dL (8.4-10.2); Carbon Dioxide 28 mmol/L (22-29); Chloride 105 mmol/L (96-108); Cholesterol 175 mg/dL (<200); Estimated Glomerular Filt Rate > 60; Glucose Fasting 99 mg/dL (60-99); HDL Cholesterol 48 mg/dL (>40); LDL Cholesterol Calculated 104 mg/dL (<100); Potassium 3.7 mmol/L (3.3-5.1); Sodium 140 mmol/L (135-145); Total Protein 7.2 g/dL (6.5-8.0); Triglycerides 116 mg/dL (<150)
== END 2024-07-11 11:12 | disposition home or self-care (01) ==
LOC: HO.HMGCLDS 11:11
PROVIDERS: PCP Internal Medicine; Visit Provider Internal Medicine
DX: Z00.01 Encounter for general adult medical examination with abnormal findings (principal); E78.5 Hyperlipidemia, unspecified; I10 Essential (primary) hypertension; C61 Malignant neoplasm of prostate
CPT/HCPCS: 36415; 80053; 80061; 85025; 96127

== ENCOUNTER 2025-02-07 10:45 | Outpatient (AMB) | payer MEDICARE, SELFPAY ==
[2025-02-07 11:07] VITALS: BP 124/76; PULSE 68; RESP 18; O2SAT 96; BMI 28.7
--- NOTE | 2025-02-07 11:07 | MHC.PC.OV ---
Vital Signs 02/07/25 11:07 Height 5 ft 6 in Weight 178 lb BMI 28.7 BP 124/76 Blood Pressure Location Lt brachial Position Sitting Respiration 18 Pulse 68 Pulse Source Pulse Oximeter Pulse Oximetry (%) 96 Oxygen Delivery Method Room Air Intake Visit Reasons: 7 months f/up-update insurance Allergies atorvastatin [Lipitor] Adverse Reaction (Unknown, Verified 02/07/25 11:22) muscle pain Medication List - Last Reconciled 02/07/25 by Norah Louie MD acetaminophen (Tylenol Extra Strength) 500 mg PO Q6H PRN finasteride 5 mg PO DAILY hydrochlorothiazide 25 mg PO DAILY ibuprofen 600 mg PO Q8H PRN metoprolol succinate ER 25 mg PO DAILY olmesartan 20 mg PO DAILY pravastatin 40 mg PO DAILY sertraline 50 mg PO DAILY terazosin 10 mg PO DAILY Tobacco use date assessed: 02/07/25 Fall risk assessment: No Falls in past year Last assessed Fall Risk: 02/07/25 Dental Screening Dental Screen Date: 02/07/25 Did you have a dental visit in the last 12 months?: No Did you have a dental problem in the last 6 months where you did not have access to dental care?: No Was dental information given to patient?: Patient declined HPI 7 months f/up-update insurance HPI Details Pt presents for f/u HTN, hyperlipid, anxiety stable on medications. [facility] Medical History Chest pain Venous stasis of lower extremity Hyperlipidemia HTN (hypertension) BPH (benign prostatic hyperplasia) Surgical History H/O colonoscopy No pertinent past surgical history Family History Father No problems noted. Mother No problems noted. Social History Housing: House Patient Tobacco Use Status: Never used Tobacco e-Cigarette/Vaping Use: Never Used Second Hand Smoke Exposure: No service: No Current occupational status: retired Cognitive needs: No Hearing needs: Yes Vision needs: Yes Questionnaire PHQ-9 Over the last 2 weeks, how often have you been bothered by any of the following problems? 1. Little interest or pleasure in doing things: not at all 2. Feeling down, depressed, or hopeless: not at all 3. Trouble falling or staying asleep, or sleeping too much: not at all 4. Feeling tired or having little energy: not at all 5. Poor appetite or overeating: not at all 6. Feeling bad about yourself - or that you are a failure or have let yourself or your family down: not at all 7. Trouble concentrating on things, such as reading the newspaper or watching television: not at all 8. Moving or speaking so slowly that other people could have noticed. Or the opposite - being so fidgety or restless that you have been moving around a lot more than usual: not at all 9. Thoughts that you would be better off or of hurting yourself in some way: not at all Total score: 0 Depression Screening Interpretation: Negative Depression Screening Done: Yes 41720 - PHQ-9 Billing: Yes Source: Developed by Drs. Kristofer Tatum, Francy Covington, Akash Chávez and colleagues, with an educational lubna from [employer]. Thrive Questionnaire Date Thrive assessed: 02/07/25 I am a: Patient What is your living situation today?: I have a steady place to live Within the past 12 months, did the food you bought not last and you didn't have the money to get more?: Never true Within the past 12 months, did you worry whether your food would run out before you got money to buy more?: Never true Do you have trouble paying for medicines?: No Do you have trouble getting transportation to medical appointments?: No Do you have trouble paying your heating and electricity bill?: No Do you have trouble taking care of your child, family member or friend?: No Do you have trouble with day-to-day activities such as bathing, preparing meals, shopping, managing finances, etc.?: No Are you currently unemployed and looking for a job?: No Are you interested in more education?: No THRIVE Score: 0 AUDIT C Alcohol Use Questionnaire (AUDIT-C) 1. How often do you have a drink containing alcohol?: Never 3. How often do you have six or more drinks on one occasion?: Never Total Score: 0 CHICO-7 AMB Questionnaire CHICO-7 Date CHICO - 7 assessed: 02/07/25 Feeling nervous, anxious, or on edge: 0 = Not at all Not being able to stop or control worryin = Not at all Worrying too much about different things: 0 = Not at all Trouble relaxin = Not at all Being so restless that it is hard to sit still: 0 = Not at all Becoming easily annoyed or irritable: 0 = Not at all Feeling afraid as if something awful might happen: 0 = Not at all Total CHICO-7 score (0-4 normal; 5-9 mild; 10-14 moderate; 15-21 severe): 0 Source: Developed by Drs. Kristofer Tatum, Francy Covington, Akash Chávez and colleagues, with an educational lubna from [employer]. CHICO-7 Assessment Billing CHICO-7 Assessment Tool: CHICO-7 Assessment 74601 Review of Systems Const All systems reviewed & are unremarkable except as noted in HPI and below Eyes Reports no additional complaints ENT Reports no additional complaints Card Reports no additional complaints Resp Reports no additional complaints GI Reports no additional complaints Reports no additional complaints Physical exam (Primary Care) Vital Signs: Last Vital Signs Pulse 68 02/07/25 11:07 Resp 18 02/07/25 11:07 BP 124/76 02/07/25 11:07 Pulse Ox 96 02/07/25 11:07 Oxygen Delivery Method Room Air 02/07/25 11:07 BMI result Body Mass Index 28.7 Tobacco/Smoking Status: Tobacco use Status Tobacco use date assessed 02/07/25 02/07/25 11:27 Patient Tobacco Use Status Never used Tobacco 02/07/25 11:07 e-Cigarette/Vaping Use Never Used 02/07/25 11:07 PHQ-9: PHQ-9 Score PHQ-9: Total score 0 02/07/25 11:27 Depression Screening Interpretation: Negative Thrive Assessment: Date of Thrive Assessment Date Thrive assessed 02/07/25 02/07/25 11:27 Const General: no acute distress HENMT Head: Yes normal to inspection Face and sinus: Yes normal facial exam Mouth: Normal oral and palatal mucosa present Eyes General: appearance normal, both eyes and all related structures Neck Neck: Yes no lymphadenopathy and Yes supple Resp Effort & Inspection: normal respiratory effort Auscultation: clear to auscultation bilaterally Cardio Rhythm: regular rhythm Heart sounds: S1 normal heart sound present and S2 normal heart sound present GI Inspection: Yes normal to inspection Palpation (GI): Soft to palpation Percussion: Yes normal to percussion Auscultation: normal bowel sounds Coding Level of Care Code Est Pt Level 4 (88585) Diagnoses HTN (hypertension) I10 Hyperlipidemia E78.5 Dysplastic nevi D23.9 Anxiety F41.9 Prostate CA C61 Additional Codes CHICO-7 Assessment Billing - CHICO-7 Assessment Tool: CHICO-7 Assessment 77423 ([id number]) PHQ-9 - 69509 - PHQ-9 Billing: Yes ([id number]) Assessment & Plan Assessment & Plan (1) HTN (hypertension): Code(s): I10 - Essential (primary) hypertension Category: Medical Plan: Continue medications (2) Hyperlipidemia: Code(s): E78.5 - Hyperlipidemia, unspecified Category: Medical Plan: Continue statin (3) Dysplastic nevi: Comment: On upper back Code(s): D23.9 - Other benign neoplasm of skin, unspecified Category: Medical Plan: Referred to dermatology (4) Anxiety: Code(s): F41.9 - Anxiety disorder, unspecified Category: Medical Plan: Continue sertraline (5) Prostate CA: Comment: s/p Casodex and RTx 02/07, f/u PVU, undetected PSA 05/09 Code(s): C61 - Malignant neoplasm of prostate Category: Medical Plan: Follow-up with urology Orders: Orders Comprehensive [place]. Panel Fast Today E78.5 - Hyperlipidemia, unspecified, I10 - Essential (primary) hypertension Lipid Panel Today E78.5 - Hyperlipidemia, unspecified, I10 - Essential (primary) hypertension Complete Blood Count Auto Diff Today E78.5 - Hyperlipidemia, unspecified, I10 - Essential (primary) hypertension Referrals Dermatology Referral D23.9 - Other benign neoplasm of skin, unspecified
--- OUTSIDE RECORDS SUMMARY | 2025-02-07 12:48 | XMS_ITS | Patient Health Record ---
Author Organization [facility] godwin Leivasy Address [address] [place] [address] Care Team Providers Care Unionmelt Operator Name Role Phone Norah Louie MD Primary Care Provider Haley Porter Unavailable [phone] Reason For Referral No Information Medications Medication SIG (Take, Route, Frequency, Duration) Notes Start Date End Date Status Sertraline HCl 50 MG 1 tablet Orally Onc e a day 10/10/2015 Unknown Valsartan 80 MG 1 tablet Orally Once a day 10/10/2015 Unknown Atorvastatin Calcium 20 MG 1 tablet Oral ly Once a day 10/10/2015 Active Avodart 0.5 MG 1 capsule Orally Onc e a day 10/10/2015 Active hydroCHLOROthiazide 25 MG 1 tablet Orall y Once a day 10/10/2015 Unknown Metoprolol Succinate ER 25 MG 1 tablet O rally Once a day 10/10/2015 Unknown Terazosin HCl 10 MG 1 capsule Orally Onc e a day 10/10/2015 Active Atenolol 25 MG 1 tablet Orally Once a day Active Social History Tobacco Use: Social History Observation Description Date Details (start date - stop date) Former Smoker NA - NA Tobacco Use/Smoking Question Answer Notes Are you a: former smoker Additional Findings: Tobacco Non-User Current no n-smoker Alcohol Screen Question Answer Notes Did you have a drink contain ing alcohol in the past year? Yes How often did you have a dri nk containing alcohol in the past year? 2 to 3 times a week (3 points) Points 3 Interpretation Negative Tobacco use other than smoking: Question Answer Notes Are you an other tobacco user? 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 Plan Of Treatment Pending Test Test Name Order Date [id number] NAIL, 6 OR MORE 07/11/2016 36543- Debride <25 sq cm 12/14/2015 13154-IPUX SKIN LESION 02/22/2016 66428-GZNZ SKIN LESION 07/11/2016 Insurance Providers Payer Name Payer Address Payer Phone Subscriber Number Group Number Insured Name Patient Relationship to Insured Coverage Start Date Coverage End Date [employer] Medicare [id number] [address] [address] [place] [address] [id number] Dionicio Low Self - patient is the insured Medical (General) History Medical History History ICD Code Benign prostatic hyperplasia (BPH) Colon polyp Cough Depression Hearing loss Hypercholesterolemia Hypertension Internal hemorrhoids Penile Lesion Shingles 3-vessel Coronary artery disease Rib injury Sore throat Surgical History Surgery Date(Month/Year) hernia
== END 2025-02-07 13:26 | disposition home or self-care (01) ==
LOC: HO.HMCC 10:46
PROVIDERS: PCP Internal Medicine; Visit Provider Internal Medicine
DX: I10 Essential (primary) hypertension (principal); E78.5 Hyperlipidemia, unspecified; C61 Malignant neoplasm of prostate; D23.9 Other benign neoplasm of skin, unspecified; F41.9 Anxiety disorder, unspecified; Z23 Encounter for immunization

== ENCOUNTER → 2025-02-07 10:45 | Outpatient (BNVA) | payer MEDICARE, SELFPAY | PROVIDERS: PCP Internal Medicine; Visit Provider Internal Medicine | DX: Z23 Encounter for immunization (principal); I10 Essential (primary) hypertension; E78.5 Hyperlipidemia, unspecified; D23.9 Other benign neoplasm of skin, unspecified; F41.9 Anxiety disorder, unspecified; C61 Malignant neoplasm of prostate | CPT/HCPCS: 90471; 90677; 96127; 99212 ==

== ENCOUNTER 2025-02-08 09:22 | Outpatient (REF) | payer MEDICARE, SELFPAY ==
[2025-02-08 10:07] LABS: MANUAL DIFF FLAG NO
[2025-02-08 10:18] LABS: Basophils Percent Auto 0.5 % (0-2); Eosinophils Absolute Auto 0.1 X10*3/uL (0.0-0.4); Eosinophils Percent Auto 2.1 % (0-4); Hematocrit 40.7 % (42.0-52.0); Hemoglobin 13.9 g/dl (14.0-18.0); Lymphocytes Percent Auto 33.8 % (20-40); Mean Corpuscular HGB Conc 34.2 g/dl (31.0-36.0); Mean Corpuscular Hemoglobin 31.4 pg (27.0-33.0); Mean Corpuscular Volume 91.9 fL (80.0-98.0); Mean Platelet Volume 10.3 fL (9.4-12.4); Monocytes Absolute Auto 0.4 X10*3/uL (0.1-1.2); Monocytes Percent Auto 6.2 % (2-11); Neutrophils Absolute Auto 3.4 x10*3/uL (2.0-8.3); Neutrophils Percent Auto 57.4 % (45-73); Platelet Count 189 X10*3/uL (160-400); Red Blood Count 4.43 X10*6/uL (4.60-5.80); Red Cell Distribution Width 12.6 % (11.0-16.0); White Blood Count 5.9 X10*3/uL (4.8-10.8)
--- OUTSIDE RECORDS SUMMARY | 2025-02-08 10:18 | XMS_ITS | Patient Health Record ---
Author Organization [facility] god[place] Address [address] [place] [address] Care Team Providers Care Privacy Compliance Manager Name Role Phone Norah Louie MD Primary Care Provider Haley Porter Unavailable [phone] Reason For Referral No Information Medications Medication [...] Problem Acquired hammer toe of right foot ([id number] 5) Other hammer toe(s) (acquired), right foot (M20.41) Active confirmed Problem Tinea unguium (868636320) Tinea unguium (B35.1) Active confirmed Problem Acquired keratoderma (374359991) 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 Plan Of Treatment Pending Test Test Name Order Date [id number] NAIL, 6 OR MORE 07/11/2016 43730- Debride <25 sq cm 12/14/2015 12908-IODW SKIN LESION 02/22/2016 76039-AQEX SKIN LESION 07/11/2016 Insurance Providers Payer Name Payer Address Payer Phone Subscriber Number Group Number Insured Name Patient Relationship to Insured Coverage Start Date Coverage End Date [employer] Medicare Adv-[id number] [address] [address] [place] [address] [id number] Dionicio Low Self - patient is the insured Medical (General) History Medical History History ICD Code Benign prostatic hyperplasia (BPH) Colon polyp Cough Depression Hearing loss Hypercholesterolemia Hypertension Internal hemorrhoids Penile Lesion Shingles 3-vessel Coronary artery disease Rib injury Sore throat Surgical History Surgery Date(Month/Year) hernia
[2025-02-08 11:38] LABS: Alanine Aminotransferase 39 U/L (0-40); Alkaline Phosphatase 70 U/L (39-117); Anion Gap 9 (12-20); Aspartate Amino Transferase 40 U/L (5-37); Bilirubin Total 0.9 mg/dL (0.0-1.0); Blood Urea Nitrogen 20 mg/dL (9-16); Carbon Dioxide 29 mmol/L (22-29); Chloride 105 mmol/L (96-108); Cholesterol 146 mg/dL (<200); Estimated Glomerular Filt Rate > 60; Glucose Fasting 91 mg/dL (60-99); HDL Cholesterol 46 mg/dL (>40); LDL Cholesterol Calculated 83 mg/dL (<100); Potassium 4.1 mmol/L (3.3-5.1); Sodium 139 mmol/L (135-145); Total Protein 6.6 g/dL (6.5-8.0); Triglycerides 87 mg/dL (<150)
== END 2025-02-08 09:23 | disposition home or self-care (01) ==
LOC: HO.HMGCLDS 09:22
PROVIDERS: PCP Internal Medicine; Visit Provider Internal Medicine
DX: I10 Essential (primary) hypertension (principal); E78.5 Hyperlipidemia, unspecified
CPT/HCPCS: 36415; 80053; 80061; 85025

== ENCOUNTER 2025-05-12 09:32 | Outpatient (AMB) | payer MEDICARE, SELFPAY ==
--- NOTE | 2025-05-12 09:42 | MHC.PC.OV ---
Vital Signs 05/12/25 09:44 Height 5 ft 6 in Weight 176 lb BMI 28.4 BP 134/74 Blood Pressure Location Lt brachial Position Sitting Respiration 16 Pulse 71 Pulse Source Pulse Oximeter Temp 98.3 F Temp Source Oral Pulse Oximetry (%) 95 Oxygen Delivery Method Room Air Intake Visit Reasons: F/U BP Geotechnicial Properties Technician Required: No Allergies atorvastatin (Lipitor) Adverse Reaction (Unknown, Verified 05/12/25 09:42) muscle pain Medication List - Last Reconciled 05/12/25 by Norah Louie MD acetaminophen (Tylenol Extra Strength) 500 mg PO Q6H PRN finasteride 5 mg PO DAILY furosemide (Lasix) 20 mg PO DAILY ibuprofen 600 mg PO Q8H PRN metoprolol succinate ER 25 mg PO DAILY olmesartan 20 mg PO DAILY pravastatin 40 mg PO DAILY sertraline 50 mg PO DAILY terazosin 10 mg PO DAILY Tobacco use date assessed: 05/12/25 Fall risk assessment: No Falls in past year Last assessed Fall Risk: 05/12/25 Dental Screening Dental Screen Date: 05/12/25 Did you have a dental visit in the last 12 months?: Yes Did you have a dental problem in the last 6 months where you did not have access to dental care?: No Was dental information given to patient?: Patient declined HPI F/U BP HPI Details Pt presents for f/u HTN, hyperlipid, BPH, stable on meds. PFSH Medical History Chest pain Venous stasis of lower extremity Hyperlipidemia HTN (hypertension) BPH (benign prostatic hyperplasia) Surgical History H/O colonoscopy No pertinent past surgical history Family History Father No problems noted. Mother No problems noted. Social History Housing: House Patient Tobacco Use Status: Never used Tobacco e-Cigarette/Vaping Use: Never Used Second Hand Smoke Exposure: No service: No Current occupational status: retired Cognitive needs: No Hearing needs: Yes Vision needs: Yes Questionnaire PHQ-9 Over the last 2 weeks, how often have you been bothered by any of the following problems? 1. Little interest or pleasure in doing things: not at all 2. Feeling down, depressed, or hopeless: not at all 3. Trouble falling or staying asleep, or sleeping too much: not at all 4. Feeling tired or having little energy: not at all 5. Poor appetite or overeating: not at all 6. Feeling bad about yourself - or that you are a failure or have let yourself or your family down: not at all 7. Trouble concentrating on things, such as reading the newspaper or watching television: not at all 8. Moving or speaking so slowly that other people could have noticed. Or the opposite - being so fidgety or restless that you have been moving around a lot more than usual: not at all 9. Thoughts that you would be better off or of hurting yourself in some way: not at all Total score: 0 Depression Screening Interpretation: Negative Depression Screening Done: Yes 05803 - PHQ-9 Billing: Yes Source: Developed by Drs. Kristofer Tatum, Francy Covington, Akash Chávez and colleagues, with an educational lubna from [employer]. Thrive Questionnaire Date Thrive assessed: 02/07/25 CHICO-7 AMB Questionnaire CHICO-7 Date CHICO - 7 assessed: 05/12/25 Feeling nervous, anxious, or on edge: 0 = Not at all Not being able to stop or control worryin = Not at all Worrying too much about different things: 0 = Not at all Trouble relaxin = Not at all Being so restless that it is hard to sit still: 0 = Not at all Becoming easily annoyed or irritable: 0 = Not at all Feeling afraid as if something awful might happen: 0 = Not at all Total CHICO-7 score (0-4 normal; 5-9 mild; 10-14 moderate; 15-21 severe): 0 Source: Developed by Drs. Kristofer Tatum, Francy Covington, Akash Chávez and colleagues, with an educational lubna from [employer]. CHICO-7 Assessment Billing CHICO-7 Assessment Tool: CHICO-7 Assessment 73704 Review of Systems Const All systems reviewed & are unremarkable except as noted in HPI and below ENT Reports no additional complaints Card Reports no additional complaints Resp Reports no additional complaints GI Reports no additional complaints Reports no additional complaints Physical exam (Primary Care) Vital Signs: Last Vital Signs Temp 98.3 F 05/12/25 09:44 Pulse 71 05/12/25 09:44 Resp 16 05/12/25 09:44 BP 134/74 05/12/25 09:44 Pulse Ox 95 05/12/25 09:44 Oxygen Delivery Method Room Air 05/12/25 09:44 BMI result Body Mass Index 28.4 Tobacco/Smoking Status: Tobacco use Status Tobacco use date assessed 05/12/25 05/12/25 09:48 Patient Tobacco Use Status Never used Tobacco 05/12/25 09:48 e-Cigarette/Vaping Use Never Used 05/12/25 09:48 PHQ-9: PHQ-9 Score PHQ-9: Total score 0 05/12/25 10:01 Depression Screening Interpretation: Negative Thrive Assessment: Date of Thrive Assessment Date Thrive assessed 02/07/25 05/12/25 09:48 Const General: no acute distress HENMT Mouth: Normal oral and palatal mucosa present Resp Effort & Inspection: normal respiratory effort Auscultation: clear to auscultation bilaterally Cardio Rhythm: regular rhythm Heart sounds: S1 normal heart sound present and S2 normal heart sound present GI Inspection: Yes normal to inspection Palpation (GI): Soft to palpation Auscultation: normal bowel sounds Coding Level of Care Code Est Pt Level 4 (69781) Diagnoses HTN (hypertension) I10 Hyperlipidemia E78.5 Prostate CA C61 Additional Codes CHICO-7 Assessment Billing - CHICO-7 Assessment Tool: CHICO-7 Assessment 44218 ([id number]) PHQ-9 - 00747 - PHQ-9 Billing: Yes ([id number]) Assessment & Plan Assessment & Plan (1) HTN (hypertension): Code(s): I10 - Essential (primary) hypertension Category: Medical Plan: Continue current medications (2) Hyperlipidemia: Code(s): E78.5 - Hyperlipidemia, unspecified Category: Medical Plan: Continue statin (3) Prostate CA: Comment: s/p Casodex and RTx 02/07, f/u PVU, undetected PSA 05/09 Code(s): C61 - Malignant neoplasm of prostate Category: Medical Plan: Follow-up with urology, return in 6 months with a fasting labs before Orders: Orders Comprehensive [place]. Panel Fast 6 Months C61 - Malignant neoplasm of prostate, E78.5 - Hyperlipidemia, unspecified, I10 - Essential (primary) hypertension Complete Blood Count Auto Diff 6 Months C61 - Malignant neoplasm of prostate, E78.5 - Hyperlipidemia, unspecified, I10 - Essential (primary) hypertension Lipid Panel 6 Months C61 - Malignant neoplasm of prostate, E78.5 - Hyperlipidemia, unspecified, I10 - Essential (primary) hypertension Medications: New furosemide (Lasix) 20 mg PO DAILY 90 tabs 3RF Refilled metoprolol succinate ER 25 mg PO DAILY 90 tabs 3RF I10 - Essential (primary) hypertension olmesartan 20 mg PO DAILY 90 tabs 3RF sertraline 50 mg PO DAILY 90 tabs 3RF terazosin 10 mg PO DAILY 90 caps 3RF N40.0 - Benign prostatic hyperplasia without lower urinary tract symptoms Discontinued hydrochlorothiazide Discontinued Reason: Doctor's Order 25 mg PO DAILY 90 tabs 3RF
[2025-05-12 09:44] VITALS: BP 134/74; PULSE 71; RESP 16; TEMP 36.8; O2SAT 95; BMI 28.4
--- OUTSIDE RECORDS SUMMARY | 2025-05-12 09:46 | XMS_ITS | Patient Health Record ---
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 Plan Of Treatment Pending Test Test Name Order Date [id number] NAIL, 6 OR MORE 07/11/2016 14311- Debride <25 sq cm 12/14/2015 [id number] SKIN LESION 02/22/2016 [id number]-ZVVZ SKIN LESION 07/11/2016 Insurance Providers Payer Name Payer Address Payer Phone Subscriber Number Group Number Insured Name Patient Relationship to Insured Coverage Start Date Coverage End Date [employer] Medicare Adv-[id number] [address] [address] [place] [address] [id number] Dionicio Low Self - patient is the insured Medical (General) History Medical History History ICD Code Benign prostatic hyperplasia (BPH) Colon polyp Cough Depression Hearing loss Hypercholesterolemia Hypertension Internal hemorrhoids Penile Lesion Shingles 3-vessel Coronary artery disease Rib injury Sore throat Surgical History Surgery Date(Month/Year) hernia
== END 2025-05-12 10:16 | disposition home or self-care (01) ==
LOC: HO.HMCC 09:33
PROVIDERS: PCP Internal Medicine; Visit Provider Internal Medicine
DX: I10 Essential (primary) hypertension (principal); E78.5 Hyperlipidemia, unspecified; C61 Malignant neoplasm of prostate

== ENCOUNTER → 2025-05-12 09:32 | Outpatient (BNVA) | payer MEDICARE, SELFPAY | PROVIDERS: PCP Internal Medicine; Visit Provider Internal Medicine | DX: I10 Essential (primary) hypertension (principal); E78.5 Hyperlipidemia, unspecified; C61 Malignant neoplasm of prostate | CPT/HCPCS: 96127; 99212 ==

== ENCOUNTER 2025-07-18 12:29 | Outpatient (AMB) | payer MEDICARE, SELFPAY ==
[2025-07-18 12:58] VITALS: BP 144/72; PULSE 62; TEMP 36.7; O2SAT 97; BMI 29.0
--- NOTE | 2025-07-18 12:58 | MHC.OFFWIV ---
Intake Vital Signs 07/18/25 12:58 Height 5 ft 6 in Weight 180 lb BMI 29.0 BP 144/72 H Blood Pressure Location Lt brachial Position Sitting Pulse 62 Pulse Source Pulse Oximeter Temp 98.1 F Temp Source Oral Pulse Oximetry (%) 97 Oxygen Delivery Method Room Air Intake Visit Reasons: EP High BP/ dizziness 150/89 Patient Tobacco Use Status: Never used Tobacco Allergies atorvastatin (Lipitor) Adverse Reaction (Unknown, Verified 07/18/25 12:59) muscle pain Do you need a note to return to daycare/school/sports/work: No HPI HPI Comments History of Present Illness Details History of Present Illness - The patient is an 84-year-old male presenting with elevated blood pressure, dizziness, and fluid retention. - He reports consistently high blood pressure, with a recent reading of 150/89 mmHg. - He has been having dizziness without headache or blurry vision. - He has swelling in the legs which has increased since stopping hydrochlorothiazide in April. - He has been taking his lasix 20 mg daily and he has compression stocking that he was not wearing today. - He denies any chest pain, SOB, PALOMO, PND, calf pain, HERNANDEZ or visual changes. Physical Exam General: Cooperative, healthy appearing, comfortable, no acute distress and well developed Orientation: Patient oriented x3 Limitations: No limitations Respiratory: Normal respiratory effort and able to speak in complete sentences. Clear to auscultation bilaterally. No w/r/r noted. Cardiovascular: Regular rate and rhythm. Normal S1 and S2. No m/r/g noted. Neuro: Patient oriented x3 Extremities: Normal to inspection. Edema noted to the lower extremities bilaterally. 2-3+ pitting edema. No warmth noted. No calf pain. Patient was informed and verbally consented to the use of an ambient scribe for clinic note documentation during this visit. [facility] Medical History Chest pain Venous stasis of lower extremity Hyperlipidemia HTN (hypertension) BPH (benign prostatic hyperplasia) Surgical History H/O colonoscopy No pertinent past surgical history Family History Father No problems noted. Mother No problems noted. Social History Housing: House Patient Tobacco Use Status: Never used Tobacco e-Cigarette/Vaping Use: Never Used Second Hand Smoke Exposure: No service: No Current occupational status: retired Cognitive needs: No Hearing needs: Yes Vision needs: Yes Review of Systems Const All systems reviewed & are unremarkable except as noted in HPI and below Physical Exam Vital Signs: Last Vital Signs Temp 98.1 F 07/18/25 12:58 Pulse 62 07/18/25 12:58 BP 144/72 H 07/18/25 12:58 Pulse Ox 97 07/18/25 12:58 Oxygen Delivery Method Room Air 07/18/25 12:58 BMI result Body Mass Index 29.0 Assessment & Plan Assessment & Plan (1) HTN (hypertension): Code(s): I10 - Essential (primary) hypertension Qualifiers: Hypertension type: primary hypertension Qualified Code(s): I10 - Essential (primary) hypertension (2) Edema: Code(s): R60.9 - Edema, unspecified Qualifiers: Edema type: localized Qualified Code(s): R60.0 - Localized edema Plan Most likely high blood pressure with lower extremity edema plan 1. Essential Hypertension - Adjust lasix to 30 mg for 1 week until follow-up with primary care physician. - Regular home monitoring of blood pressure is advised. - low salt diet - follow up next week for a BP check 2. Peripheral Edema - Assess the effectiveness of current diuretic therapy (Lasix 20 mg daily). - wear compression stockings - elevate legs - will send his PCP a message in regards to a cardiology referral and repeat echo - last echo was in 2021 Coding Level of Care Code Est Pt Level 3 (61105) Diagnoses Primary hypertension I10 Hypertension type: primary hypertension Localized edema R60.0 Edema type: localized
--- OUTSIDE RECORDS SUMMARY | 2025-07-18 13:38 | XMS_ITS | Patient Health Record ---
Author Organization [facility] godwin [place] Address [address] [place] [address] Care Team Providers Care Cured Meat Packing Supervisor Name Role Phone Norah Louie MD Primary Care Provider Haley Porter Unavailable [phone] Reason For Referral No Information Medications Medication [...] Problem Acquired hammer toe of right foot ([id number] 5) Other hammer toe(s) (acquired), right foot (M20.41) Active confirmed Problem Tinea unguium (859203009) Tinea unguium (B35.1) Active confirmed Problem Acquired keratoderma (228074578) 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 Plan Of Treatment Pending Test Test Name Order Date [id number] NAIL, 6 OR MORE 07/11/2016 02856- Debride <25 sq cm 12/14/2015 [id number] SKIN LESION 02/22/2016 [id number] SKIN LESION 07/11/2016 Insurance Providers Payer Name Payer Address Payer Phone Subscriber Number Group Number Insured Name Patient Relationship to Insured Coverage Start Date Coverage End Date [employer] Medicare Adv-[id number] [address] [address] [place] [address] [id number] Dionicio Low Self - patient is the insured Medical (General) History Medical History History ICD Code Benign prostatic hyperplasia (BPH) Colon polyp Cough Depression Hearing loss Hypercholesterolemia Hypertension Internal hemorrhoids Penile Lesion Shingles 3-vessel Coronary artery disease Rib injury Sore throat Surgical History Surgery Date(Month/Year) hernia
== END 2025-07-18 13:53 | disposition home or self-care (01) ==
PROVIDERS: PCP Internal Medicine; Visit Provider Physician Assistant Medical
DX: I10 Essential (primary) hypertension (principal); R60.0 Localized edema

== ENCOUNTER → 2025-07-18 12:29 | Outpatient (BNVA) | payer MEDICARE, SELFPAY | PROVIDERS: PCP Internal Medicine; Visit Provider Physician Assistant Medical | DX: R42 Dizziness and giddiness (principal); I10 Essential (primary) hypertension; R60.0 Localized edema | CPT/HCPCS: 99212 ==

== ENCOUNTER 2025-07-21 09:11 | Outpatient (REF) | payer MEDICARE, SELFPAY ==
--- OUTSIDE RECORDS SUMMARY | 2025-07-21 09:37 | XMS_ITS | Patient Health Record ---
Author Organization [facility] godwin [place] Address [address] [place] [address] Care Team Providers Care Hand Dry Cleaner Name Role Phone Norah Louie MD Primary Care Provider Haley Porter Unavailable [phone] Reason For Referral No Information Medications Medication [...] Problem Acquired hammer toe of right foot ([id number] 5) Other hammer toe(s) (acquired), right foot (M20.41) Active confirmed Problem Tinea unguium (968985795) Tinea unguium (B35.1) Active confirmed Problem Acquired keratoderma (550255450) 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 Plan Of Treatment Pending Test Test Name Order Date [id number] NAIL, 6 OR MORE 07/11/2016 13221- Debride <25 sq cm 12/14/2015 [id number]-BIHH SKIN LESION 02/22/2016 [id number] SKIN LESION 07/11/2016 Insurance Providers Payer Name Payer Address Payer Phone Subscriber Number Group Number Insured Name Patient Relationship to Insured Coverage Start Date Coverage End Date [employer] Medicare Adv-[id number] [address] [address] [place] [address] [id number] Dionicio Low Self - patient is the insured Medical (General) History Medical History History ICD Code Benign prostatic hyperplasia (BPH) Colon polyp Cough Depression Hearing loss Hypercholesterolemia Hypertension Internal hemorrhoids Penile Lesion Shingles 3-vessel Coronary artery disease Rib injury Sore throat Surgical History Surgery Date(Month/Year) hernia
[2025-07-21 10:10] LABS: MANUAL DIFF FLAG NO
[2025-07-21 10:28] LABS: Hematocrit 42.0 % (42.0-52.0); Hemoglobin 14.6 g/dl (14.0-18.0); Imm Gran Abs Auto 0.01 X10*3/uL (0.00-0.03); Imm Gran Pct Auto 0.3 % (0.0-0.4); Lymphocytes Absolute Auto 1.5 X10*3/uL (1.2-4.9); Mean Corpuscular HGB Conc 34.8 g/dl (31.0-36.0); Mean Corpuscular Hemoglobin 31.8 pg (27.0-33.0); Mean Corpuscular Volume 91.5 fL (80.0-98.0); NRBC Abs Auto 0.000 X10*3/uL (0.0-0.012); NRBC Pct Auto 0.0 /100WBC (0.0-0.2); Platelet Count 203 X10*3/uL (160-400); Red Blood Count 4.59 X10*6/uL (4.60-5.80); White Blood Count 3.7 X10*3/uL (4.8-10.8)
[2025-07-21 10:47] LABS: NT Pro B Type Natriuretic Pept 51.1 pg/mL (<300)
[2025-07-21 11:20] LABS: Alanine Aminotransferase 32 U/L (0-40); Albumin Level 4.4 g/dL (3.5-5.0); Alkaline Phosphatase 77 U/L (39-117); Anion Gap 13 (12-20); Aspartate Amino Transferase 48 U/L (5-37); Blood Urea Nitrogen 21 mg/dL (9-16); Calcium 9.2 mg/dL (8.4-10.2); Carbon Dioxide 27 mmol/L (22-29); Chloride 105 mmol/L (96-108); Estimated Glomerular Filt Rate > 60; Potassium 4.2 mmol/L (3.3-5.1); Sodium 141 mmol/L (135-145); Total Protein 6.9 g/dL (6.5-8.0)
== END 2025-07-21 09:12 | disposition home or self-care (01) ==
LOC: HO.HMGCLDS 09:11
PROVIDERS: PCP Internal Medicine; Visit Provider Internal Medicine
DX: I11.0 Hypertensive heart disease with heart failure (principal); I50.9 Heart failure, unspecified
CPT/HCPCS: 36415; 80053; 83880; 84443; 84481; 85025

== ENCOUNTER 2025-07-25 12:36 | Outpatient (REF) | payer MEDICARE, SELFPAY ==
--- NOTE | ~2025-07-25 | XR_ITS ---
EXAMINATION: XR SHOULDER 2 OR MORE VIEWS LEFT HISTORY: M25.512 - Pain in left shoulder COMPARISON: Comparison is made with the prior examination of the left clavicle dated 09/14/2019. FINDINGS: Three views of the left shoulder are submitted. Osseous mineralization is normal. There is an old healed fracture of the midshaft of the clavicle. There are also old healed fractures of the left upper ribs. No acute fracture or dislocation. The glenohumeral joint is maintained. There is mild degenerative change of the AC joint. The soft tissues are unremarkable. 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 Electronically signed by: Kristofer Sellers MD 07/25/2025 01:16 PM EDT
== END 2025-07-25 12:37 | disposition home or self-care (01) ==
LOC: HO.HMGCX 12:36
PROVIDERS: PCP Internal Medicine; Visit Provider Internal Medicine
DX: M25.512 Pain in left shoulder (principal); I10 Essential (primary) hypertension; R60.0 Localized edema
CPT/HCPCS: 73030; 99212

== ENCOUNTER 2025-07-25 12:36 | Outpatient (AMB) | payer MEDICARE, SELFPAY ==
[2025-07-25 12:39] VITALS: BP 118/74; PULSE 63; RESP 17; TEMP 36.7; O2SAT 96; BMI 28.6
--- NOTE | 2025-07-25 12:39 | A.OFFPC_ITS ---
Vital Signs 07/25/25 12:39 Height 5 ft 6 in Weight 177 lb BMI 28.6 BP 118/74 Blood Pressure Location Lt brachial Position Sitting Respiration 17 Pulse 63 Pulse Source Pulse Oximeter Temp 98.1 F Temp Source Oral Pulse Oximetry (%) 96 Oxygen Delivery Method Room Air Intake Visit Reasons: follow up bp from walk in Intake Note: Pt is here today for a follow up visit after being seen in a walk in. Allergies atorvastatin (Lipitor) Adverse Reaction (Unknown, Verified 07/25/25 12:40) muscle pain Medication List - Last Reconciled 07/25/25 by Norah Louie MD acetaminophen (Tylenol Extra Strength) 500 mg PO Q6H PRN finasteride 5 mg PO DAILY furosemide (Lasix) 40 mg PO DAILY ibuprofen 600 mg PO Q8H PRN metoprolol succinate ER 25 mg PO DAILY olmesartan 20 mg PO DAILY pravastatin 40 mg PO DAILY sertraline 50 mg PO DAILY terazosin 10 mg PO DAILY Tobacco use date assessed: 05/12/25 Dental Screening Dental Screen Date: 05/12/25 HPI follow up bp from walk in HPI Details Patient presents for a follow-up. Lower extremity swelling improved on 40 mg of furosemide. Patient's blood pressure has been stable at home with the readings between 130/80 and 110/60. Patient denies chest pain, palpitations or shortness or breath. He has been physically active working in the garden. Patient complains of worsening of his chronic left shoulder pain especially when reaching overhead or lifting heavy objects. He denies injury [facility] Medical History (Updated 07/25/25 @ 12:59 by Norah Louie MD) Prostate CA Bilateral lower extremity edema Venous stasis of lower extremity Hyperlipidemia HTN (hypertension) BPH (benign prostatic hyperplasia) Surgical History H/O colonoscopy No pertinent past surgical history Family History Father No problems noted. Mother No problems noted. Social History Housing: House Patient Tobacco Use Status: Never used Tobacco e-Cigarette/Vaping Use: Never Used Second Hand Smoke Exposure: No service: No Current occupational status: retired Cognitive needs: No Hearing needs: Yes Vision needs: Yes Questionnaire PHQ-9 Over the last 2 weeks, how often have you been bothered by any of the following problems? 1. Little interest or pleasure in doing things: not at all 2. Feeling down, depressed, or hopeless: not at all 3. Trouble falling or staying asleep, or sleeping too much: not at all 4. Feeling tired or having little energy: not at all 5. Poor appetite or overeating: not at all 6. Feeling bad about yourself - or that you are a failure or have let yourself or your family down: not at all 7. Trouble concentrating on things, such as reading the newspaper or watching television: not at all 8. Moving or speaking so slowly that other people could have noticed. Or the opposite - being so fidgety or restless that you have been moving around a lot more than usual: not at all 9. Thoughts that you would be better off or of hurting yourself in some way: not at all Total score: 0 Depression Screening Interpretation: Negative Depression Screening Done: Yes Source: Developed by Drs. Kristofer Tatum, Francy Covington, Akash Chávez and colleagues, with an educational lubna from [employer]. Thrive Questionnaire Date Thrive assessed: 02/07/25 CHICO-7 AMB Questionnaire CHICO-7 Date CHICO - 7 assessed: 05/12/25 Feeling nervous, anxious, or on edge: 0 = Not at all Not being able to stop or control worryin = Not at all Worrying too much about different things: 0 = Not at all Trouble relaxin = Not at all Being so restless that it is hard to sit still: 0 = Not at all Becoming easily annoyed or irritable: 0 = Not at all Feeling afraid as if something awful might happen: 0 = Not at all Total CHICO-7 score (0-4 normal; 5-9 mild; 10-14 moderate; 15-21 severe): 0 Source: Developed by Drs. Kristofer Tatum, Akash Bustamante and colleagues, with an educational lubna from [employer]. Review of Systems Const All systems reviewed & are unremarkable except as noted in HPI and below Eyes Reports no additional complaints ENT Reports no additional complaints Card Reports no additional complaints Resp Reports no additional complaints GI Reports no additional complaints Reports no additional complaints Physical exam (Primary Care) Vital Signs: Last Vital Signs Temp 98.1 F 07/25/25 12:39 Pulse 63 07/25/25 12:39 Resp 17 07/25/25 12:39 BP 118/74 07/25/25 12:39 Pulse Ox 96 07/25/25 12:39 Oxygen Delivery Method Room Air 07/25/25 12:39 BMI result Body Mass Index 28.6 Tobacco/Smoking Status: Tobacco use Status Tobacco use date assessed 05/12/25 07/25/25 12:43 Patient Tobacco Use Status Never used Tobacco 07/25/25 12:43 e-Cigarette/Vaping Use Never Used 07/25/25 12:43 PHQ-9: PHQ-9 Score PHQ-9: Total score 0 07/25/25 12:43 Depression Screening Interpretation: Negative Thrive Assessment: Date of Thrive Assessment Date Thrive assessed 02/07/25 07/25/25 12:43 Const General: no acute distress HENMT Head: Yes normal to inspection Face and sinus: Yes normal facial exam Neck Neck: Yes supple Cardio Rhythm: regular rhythm Heart sounds: S1 normal heart sound present and S2 normal heart sound present GI Inspection: Yes normal to inspection Palpation (GI): Soft to palpation Percussion: Yes normal to percussion Auscultation: normal bowel sounds Extrem Other: 1+ nonpitting edema bilaterally, there is a slightly decreased range of motion in the left shoulder no joint tenderness or swelling Coding Level of Care Code Est Pt Level 4 (37190) Diagnoses Shoulder pain, left M25.512 Primary hypertension I10 Hypertension type: primary hypertension Bilateral lower extremity edema R60.0 Assessment & Plan Assessment & Plan (1) Shoulder pain, left: Code(s): M25.512 - Pain in left shoulder Category: Medical Plan: For chronic left shoulder pain obtain x-ray and referred to physical therapy (2) HTN (hypertension): Code(s): I10 - Essential (primary) hypertension Category: Medical Qualifiers: Hypertension type: primary hypertension Qualified Code(s): I10 - Essential (primary) hypertension Plan: Continue current medications (3) Bilateral lower extremity edema: Comment: Due to venous stasis, controlled with compression knee highs Code(s): R60.0 - Localized edema Category: Medical Plan: Continue compression stockings and 40 mg of furosemide follow-up in 2 months Orders: Orders XR shoulder LT min 2V Today M25.512 - Pain in left shoulder PT Evaluation and Treatment Today M25.512 - Pain in left shoulder Medications: New furosemide (Lasix) 40 mg PO DAILY 90 tabs 3RF
--- OUTSIDE RECORDS SUMMARY | 2025-07-25 15:27 | XMS_ITS | Patient Health Record ---
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 Plan Of Treatment Pending Test Test Name Order Date [id number] NAIL, 6 OR MORE 07/11/2016 71820- Debride <25 sq cm 12/14/2015 [id number]-[id number] SKIN LESION 02/22/2016 [id number] SKIN LESION 07/11/2016 Insurance Providers Payer Name Payer Address Payer Phone Subscriber Number Group Number Insured Name Patient Relationship to Insured Coverage Start Date Coverage End Date [employer] Medicare Adv-[id number] [address] [address] [place] [address] [id number] Dionicio Low Self - patient is the insured Medical (General) History Medical History History ICD Code Benign prostatic hyperplasia (BPH) Colon polyp Cough Depression Hearing loss Hypercholesterolemia Hypertension Internal hemorrhoids Penile Lesion Shingles 3-vessel Coronary artery disease Rib injury Sore throat Surgical History Surgery Date(Month/Year) hernia
== END 2025-07-25 13:06 | disposition home or self-care (01) ==
LOC: HO.HMCC 12:37
PROVIDERS: PCP Internal Medicine; Visit Provider Internal Medicine
DX: M25.512 Pain in left shoulder (principal); I10 Essential (primary) hypertension; R60.0 Localized edema

== ENCOUNTER → 2025-07-25 13:02 | Outpatient (BNV) | payer MEDICARE, SELFPAY | PROVIDERS: PCP Internal Medicine; Visit Provider Radiology Diagnostic Radiology | DX: M25.512 Pain in left shoulder (principal) | CPT/HCPCS: 73030 ==

== ENCOUNTER 2025-07-29 11:47 | Outpatient (AMB) | payer MEDICARE, SELFPAY ==
--- OUTSIDE RECORDS SUMMARY | 2025-07-29 11:49 | XMS_ITS | Patient Health Record ---
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 Plan Of Treatment Pending Test Test Name Order Date [id number] NAIL, 6 OR MORE 07/11/2016 73276- Debride <25 sq cm 12/14/2015 [id number]-GNFT SKIN LESION 02/22/2016 [id number]-CEVN SKIN LESION 07/11/2016 Insurance Providers Payer Name Payer Address Payer Phone Subscriber Number Group Number Insured Name Patient Relationship to Insured Coverage Start Date Coverage End Date [employer] Medicare [id number] [address] [address] [place] [address] [id number] Dionicio Low Self - patient is the insured Medical (General) History Medical History History ICD Code Benign prostatic hyperplasia (BPH) Colon polyp Cough Depression Hearing loss Hypercholesterolemia Hypertension Internal hemorrhoids Penile Lesion Shingles 3-vessel Coronary artery disease Rib injury Sore throat Surgical History Surgery Date(Month/Year) hernia
[2025-07-29 12:03] VITALS: BP 122/62; PULSE 70; RESP 16; TEMP 36.5; O2SAT 97; BMI 28.1
--- NOTE | 2025-07-29 12:03 | MHC.OFFWIV ---
Intake Vital Signs 07/29/25 12:03 Height 5 ft 6 in Weight 174 lb BMI 28.1 BP 122/62 Blood Pressure Location Lt brachial Position Sitting Respiration 16 Pulse 70 Pulse Source Pulse Oximeter Temp 97.7 F Temp Source Oral Pulse Oximetry (%) 97 Oxygen Delivery Method Room Air Intake Visit Reasons: EP, left calf pain Intake Note: Pt is here today c/o Lt calf sharp pain woke up with pain this morning Patient Tobacco Use Status: Never used Tobacco Allergies atorvastatin (Lipitor) Adverse Reaction (Unknown, Verified 07/29/25 12:07) muscle pain Medication List - Last Reconciled 07/29/25 by Frederic Foley MD acetaminophen (Tylenol Extra Strength) 500 mg PO Q6H PRN finasteride 5 mg PO DAILY furosemide (Lasix) 40 mg PO DAILY ibuprofen 600 mg PO Q8H PRN metoprolol succinate ER 25 mg PO DAILY olmesartan 20 mg PO DAILY pravastatin 40 mg PO DAILY sertraline 50 mg PO DAILY terazosin 10 mg PO DAILY HPI EP, left calf pain HPI Details Patient was seen recently for bilateral lower extremity edema and he is on furosemide. No excessive walking or injury yesterday but he awoke this morning with a sharp and severe left lower leg/calf pain. Pain worsened with walking but since this morning, has improved somewhat. Minimal pain or tenderness right now. Minimal or trace edema bilaterally. [facility] Medical History (Updated 07/29/25 @ 12:40 by Frederic Foley MD) Prostate CA Bilateral lower extremity edema Venous stasis of lower extremity Hyperlipidemia HTN (hypertension) BPH (benign prostatic hyperplasia) Surgical History H/O colonoscopy No pertinent past surgical history Family History Father No problems noted. Mother No problems noted. Social History Housing: House Patient Tobacco Use Status: Never used Tobacco e-Cigarette/Vaping Use: Never Used Second Hand Smoke Exposure: No service: No Current occupational status: retired Cognitive needs: No Hearing needs: Yes Vision needs: Yes Review of Systems Const Details: See HPI Physical Exam Vital Signs: Last Vital Signs Temp 97.7 F 10/11/25 12:03 Pulse 70 07/29/25 12:03 Resp 16 07/29/25 12:03 BP 122/62 07/29/25 12:03 Pulse Ox 97 07/29/25 12:03 Oxygen Delivery Method Room Air 07/29/25 12:03 BMI result Body Mass Index 28.1 Const General: no acute distress and well developed Nutritional Appearance: well nourished Orientation/consciousness: patient oriented x3 HEENT Head: Yes normocephalic and Yes atraumatic Eyes General: appearance normal, both eyes and all related structures Pupils: Equal, round and reactive pupils present EOM: EOMs intact bilaterally Resp Effort & Inspection: normal respiratory effort Auscultation: clear to auscultation bilaterally Cardio Rate: regular rate Rhythm: regular rhythm Heart sounds: S1 normal heart sound present, S2 normal heart sound present, no gallops, no murmurs and no rubs Neuro General: patient oriented x3 and gait normal Cranial nerves: Yes Equal, round and reactive pupils present Extrem Other: Unable to elicit pain in left calf No erythema or significant swelling. Trace edema is bilateral. No cords palpated Patient is able to ambulate Patient and family member want blood clot ruled out. Discussed with patient that there is very low probability of any DVT. Discussed with patient that we can get a D-dimer test to rule out blood clots. Sensitive but not specific. If negative, very little chance of blood clots If positive, would need to investigate further with a stat ultrasound. Patient agrees. Psych Affect: normal affect Assessment & Plan Assessment & Plan (1) Pain of left calf: Code(s): M79.662 - Pain in left lower leg Plan Unable to elicit pain in left calf No erythema or significant swelling. Trace edema is bilateral. No cords palpated Patient is able to ambulate Patient and family member want blood clot ruled out. Discussed with patient that there is very low probability of any DVT. Discussed with patient that we can get a D-dimer test to rule out blood clots. Sensitive but not specific. If negative, very little chance of blood clots If positive, would need to investigate further with a stat ultrasound. Patient agrees. Orders: Orders D Dimer High Sensitivity Today M79.662 - Pain in left lower leg Complete Blood Count Auto Diff Today M79.662 - Pain in left lower leg, Z00.00 - Encounter for general adult medical examination without abnormal findings Basic Metabolic Panel Today M79.662 - Pain in left lower leg, Z00.00 - Encounter for general adult medical examination without abnormal findings Coding Level of Care Code Est Pt Level 3 (89658) Diagnoses Pain of left calf M79.662
== END 2025-07-29 12:42 | disposition home or self-care (01) ==
PROVIDERS: PCP Internal Medicine; Visit Provider Family Medicine
DX: M79.662 Pain in left lower leg (principal)

== ENCOUNTER 2025-07-29 11:47 | Outpatient (REF) | payer MEDICARE, SELFPAY ==
[2025-07-29 15:19] LABS: MANUAL DIFF FLAG NO
[2025-07-29 15:29] LABS: Hematocrit 45.8 % (42.0-52.0); Hemoglobin 15.2 g/dl (14.0-18.0); Imm Gran Abs Auto 0.01 X10*3/uL (0.00-0.03); Imm Gran Pct Auto 0.2 % (0.0-0.4); Lymphocytes Absolute Auto 1.7 X10*3/uL (1.2-4.9); Mean Corpuscular HGB Conc 33.2 g/dl (31.0-36.0); Mean Corpuscular Hemoglobin 30.9 pg (27.0-33.0); Mean Corpuscular Volume 93.1 fL (80.0-98.0); NRBC Abs Auto 0.000 X10*3/uL (0.0-0.012); NRBC Pct Auto 0.0 /100WBC (0.0-0.2); Platelet Count 205 X10*3/uL (160-400); Red Blood Count 4.92 X10*6/uL (4.60-5.80); White Blood Count 4.7 X10*3/uL (4.8-10.8)
[2025-07-29 15:56] LABS: Anion Gap 13 (12-20); Blood Urea Nitrogen 17 mg/dL (9-16); Calcium 9.3 mg/dL (8.4-10.2); Carbon Dioxide 30 mmol/L (22-29); Chloride 103 mmol/L (96-108); Estimated Glomerular Filt Rate > 60; Potassium 4.8 mmol/L (3.3-5.1); Sodium 141 mmol/L (135-145)
[2025-07-29 16:40] LABS: D Dimer High Sensitivity 252 NG/ML
== END 2025-07-29 11:48 | disposition home or self-care (01) ==
LOC: HO.HMGCLDS 11:47
PROVIDERS: PCP Internal Medicine; Visit Provider Family Medicine
DX: Z00.00 Encounter for general adult medical examination without abnormal findings (principal); M79.662 Pain in left lower leg
CPT/HCPCS: 36415; 80048; 85025; 85379; 99212

== ENCOUNTER 2025-07-29 18:37 | Emergency (ER) | payer MEDICARE, SELFPAY ==
--- NOTE | ~2025-07-29 | US_ITS ---
CLINICAL HISTORY: calf pain ro dvt Venous duplex ultrasound left lower extremity Comparison: None provided Findings: The visualized deep veins are fully compressible with normal Doppler color flow and spectral tracings. No popliteal cyst. IMPRESSION: 1. Negative for left lower extremity deep vein thrombosis. This document has been electronically signed by: Savana Vásquez MD on 07/29/2025 21:02:09
[2025-07-29 18:41] VITALS: BP 104/60; PULSE 85; RESP 15; TEMP 36.6; O2SAT 96; BMI 26.6
--- NOTE | 2025-07-29 18:43 | ED_ITS ---
HPI - General Adult General Chief complaint: Extremity Injury, Lower Stated complaint: left leg pain Time Seen by Provider: 07/29/25 19:41 Source: patient Mode of arrival: ambulatory Limitations: no limitations History of Present Illness ED Provider: Sue Torres PA-C HPI narrative: Patient is an 84 year old assigned male at with a history of anxiety, BPH, HTN, HLD, and prostate CA presenting to the emergency department today with left lower leg pain and an elevated d dimer. Patient states that he had left lower leg pain earlier today that has now resolved and when he went to the urgent care they told him his blood test for clot was elevated and he needs an US. Patient denies any other complaints at this time. Related Data Home Medications ?Medication ?Instructions ?Recorded ?Confirmed acetaminophen 500 mg tablet 500 mg PO Q6H PRN 05/29/22 07/29/25 (Tylenol Extra Strength) ibuprofen 600 mg tablet 600 mg PO Q8H PRN 05/29/22 1 Previous Rx's ?Medication ?Instructions ?Recorded finasteride 5 mg tablet 5 mg PO DAILY #90 tabs 11/25 pravastatin 40 mg tablet 40 mg PO DAILY #90 tabs 05/0 11/12 metoprolol succinate 25 mg 25 mg PO DAILY #90 tabs tablet,extended release 24 hr olmesartan 20 mg tablet 20 mg PO DAILY #90 tabs 04/19 03/12 sertraline 50 mg tablet 50 mg PO DAILY #90 tabs 04/19 03/12 terazosin 10 mg capsule 10 mg PO DAILY #90 caps 04/19 03/12 furosemide 40 mg tablet (Lasix) 40 mg PO DAILY #90 tab s 07/25/25 Allergies Allergy/AdvReac Type Severity Reaction Status Date / Time atorvastatin (Lipitor) AdvReac Unknown muscle pain Verified 07/29/25 18:42 Review of Systems Constitutional: Constitutional: Reports as per HPI Eyes: Eyes: Reports as per HPI ENT: Reports as per HPI Cardiovascular: Cardiovascular: Reports as per HPI Respiratory: Respiratory: Reports as per HPI Gastrointestinal: Gastrointestinal: Reports as per HPI Genitourinary: Genitourinary: Reports as per HPI Musculoskeletal: Musculoskeletal: Reports as per HPI Integumentary/Breasts: Skin/Breast: Reports as per HPI Neurologic: Reports as per HPI Psychiatric: Psychiatric: Reports as per HPI Endocrine: Endocrine: Reports as per HPI Hematologic/Lymphatic: Hematologic/Lymphatic: Reports as per HPI Allergic/Immunologic: Allergic/Immunologic: Reports as per HPI [facility] Past Medical History Attestation statement: The following information was validated with the patient. Source: old records reviewed and nursing notes reviewed Medical History Prostate CA Bilateral lower extremity edema Venous stasis of lower extremity Hyperlipidemia HTN (hypertension) BPH (benign prostatic hyperplasia) Surgical History H/O colonoscopy No pertinent past surgical history Family History Family History Father No problems noted. Mother No problems noted. Social History Social History Housing: House Patient Tobacco Use Status: Never used Tobacco Smoked in Last 30 Days: No e-Cigarette/Vaping Use: Never Used Second Hand Smoke Exposure: No Use of substances other than those prescribed or required for medical reasons: No Advance Directives: No Advance Directives Information Provided: No Do you have a plan to hurt others: No Plan service: No Current occupational status: retired Cognitive needs: No Hearing needs: Yes Vision needs: Yes Physical Exam ED Vital Signs: Vital Signs - 24 hr 07/29/25 18:41 07/29/25 19:38 07/29/25 21:15 Temperature 97.8 F 97.8 F 98.1 F Pulse Rate 85 65 70 Respiratory Rate 15 16 19 Blood Pressure 104/60 113/59 L 159/79 H Pulse Oximetry 96 96 97 Oxygen Delivery Method Room Air Room Air Room Air 07/29/25 21:20 Temperature 98.1 F Pulse Rate 70 Respiratory Rate 19 Blood Pressure 159/79 H Pulse Oximetry 97 Oxygen Delivery Method Room Air BMI result Body Mass Index 26.6 Const General: cooperative, no acute distress, alert and awake Nutritional Appearance: well nourished Orientation/consciousness: patient oriented x3 HENMT Head: Yes normal to inspection and Yes atraumatic Ears: hearing grossly normal bilaterally and external ears normal General nose exam: Normal external nose present, no nasal discharge noted and no epistaxis Face and sinus: Yes normal facial exam, No abrasion and No laceration Mouth: Normal oral and palatal mucosa present, no drooling and no muffled voice Eyes General: appearance normal, both eyes and all related structures Periorbital: periorbital findings normal Eyelids: Yes eyelids normal Conjunctivae: conjunctivae normal Pupils: Equal, round and reactive pupils present EOM: EOMs intact bilaterally Neck Neck: Yes normal visual inspection and Yes full ROM Resp Effort & Inspection: normal respiratory effort and able to speak in complete sentences Neuro General: patient oriented x3, moves all extremities and CN's II-XI intact bilaterally Cranial nerves: Yes Equal, round and reactive pupils present Cognition (Neuro): normal cognition Extrem General: Yes normal to inspection, Yes full ROM and Yes capillary refill normal Psych Appearance: grossly normal Mental Status: mental status grossly normal Affect: normal affect Attitude: cooperative Thought process: Normal thought process present Thought content: Normal thought content present Insight: Good insight present (Psych) Course Course Course Narrative: This is a Rapid Medical Examination (RME) performed by Lizbeth Dudley PA-C in triage. Full HPI, ROS, assessment and treatment plan per primary provider in the Main ED. Hx: 84 yo M here for eval of acute onset left calf pain x this morning. seen at w/ dimer of 252 (age adjusted threshold 425). sent here d/t concern for DVT. no cp, sob, cough. Plan: venous duplex Medical Decision Making Medical Decision Making [facility] Narrative: Patient is an 84 year old assigned male at with a history of anxiety, BPH, HTN, HLD, and prostate CA presenting to the emergency department today with left lower leg pain and an elevated d dimer. Patient's physical exam was as noted in the physical exam portion of this note. Patient's blood work showed a d dimer of 252 but were otherwise unremarkable. Patient's LLE US showed no acute process. I explained my physical exam findings as well as all test results to the patient. I answered all questions asked by the patient. I stressed the importance of the patient taking his medication as directed (either prescribed or as the over the counter packaging recommends). I stressed the importance of the patient following up with his primary care provider. I stressed the importance of the patient returning to the emergency department immediately if his symptoms were to worsen or if he were to develop any dizziness, shortness of breath, difficulty breathing, chest pain, blurry vision, loss of vision, nausea, vomiting, abdominal pain, fever, chills, back pain, or any other complaints. Patient verbalized agreement and understanding with this treatment plan and discharge. Differential Diagnosis Differential Diagnoses: The differential diagnosis associated with the presentation includes LLE US Left lower leg pain Left lower leg cramp Admission/Observation Consideration of admission/observation: Escalation of care including admission/observation considered Patient would have been admitted to the hospital had his work up had any findings where hospital admission was appropriate and his clinical presentation warranted hospital admission. Independent Interpretation I performed an independent interpretation of an: Ultrasound Interpretation: My interpretation is in agreement with the radiologist's impression of this imaging study. Reason for Exam: calf pain ro dvt CLINICAL HISTORY: calf pain ro dvt Venous duplex ultrasound left lower extremity Comparison: None provided Findings: The visualized deep veins are fully compressible with normal Doppler color flow and spectral tracings. No popliteal cyst. IMPRESSION: 1. Negative for left lower extremity deep vein thrombosis. This document has been electronically signed by: Savana Vásquez MD on 07/29/2025 21:02:09 Dictated By: Savana Vásquez MD Signed By: Electronically signed by Savana Vásquez MD 07/29/252102 Radiology Impression Discussion of test interpretation with radiology: I have reviewed the radiologist's reading. Discharge Plan Discharge Clinical Impression: Leg pain Patient Disposition: Home, Self-Care Instructions: Leg Cramps (ED), Leg Pain (ED) Additional Instructions: Your work up today showed no evidence of a blood clot or any EMERGENT process for your symptoms. IF you are prescribed home medications and/or you are taking over the counter medications at home - it is very important you continue to do so as prescribed / directed unless told otherwise. Follow up with your primary care provider. Return to the emergency department immediately if your symptoms worsen or if you develop any numbness, tingling, dizziness, shortness of breath, difficulty breathing, chest pain, blurry vision, loss of vision, nausea, vomiting, abdominal pain, fever, chills, back pain, or any other complaints. Please see the information below about our Patient Portal. If you are not yet enrolled in the [facility] Patient Portal, you will receive an enrollment email invitation following your visit to any [facility] setting. You may also self-enroll in the Patient Portal by visiting our website: [email or web address] The following information is required to access the Patient Portal: - Your [facility] Medical Record Number - Your personal home email address (must match what is in your electronic medical record, Registration staff can assist with this) - Name - Date of Capabilities of the Patient Portal: - Message some providers - View upcoming appointments - Access your health summary, medical history, and visit history - View current conditions and allergies - View procedure and lab results - View your medications, including guidelines, side effects, and precautions - Complete pre-appointment questionnaires requested by your provider - Ready summary reports of your office visits and procedures To access the Patient Portal Mobile [employer], follow these directions: - Search [employer] Support in the [employer] Store or [employer] Store - Download the Ronni - Search for [facility] - Enter your login/password Prescriptions: No Action finasteride 5 mg tablet 5 mg PO DAILY Qty: 90 3RF pravastatin 40 mg tablet 40 mg PO DAILY Qty: 90 3RF ibuprofen 600 mg tablet 600 mg PO Q8H PRN acetaminophen [Tylenol Extra Strength] 500 mg tablet 500 mg PO Q6H PRN metoprolol succinate 25 mg tablet extended release 24 hr 25 mg PO DAILY Qty: 90 3RF olmesartan 20 mg tablet 20 mg PO DAILY Qty: 90 3RF sertraline 50 mg tablet 50 mg PO DAILY Qty: 90 3RF terazosin 10 mg capsule 10 mg PO DAILY Qty: 90 3RF furosemide [Lasix] 40 mg tablet 40 mg PO DAILY Qty: 90 3RF Referrals: Norah Louie MD [Primary Care Provider, Internal Medicine] Interventions: ED Discharge Assessment Last Done: 07/29/25 21:20 Discharge Date/Time: 07/29/25 21:21 Print Language: Finnish
--- NOTE | 2025-07-29 19:30 | PC.NURSE ---
this RN assumed care of this pt @1900 this time
[2025-07-29 19:38] VITALS: BP 113/59; PULSE 65; RESP 16; TEMP 36.6; O2SAT 96
[2025-07-29 21:15] VITALS: BP 159/79; PULSE 70; RESP 19; TEMP 36.7; O2SAT 97
[2025-07-29 21:20] VITALS: BP 159/79; PULSE 70; RESP 19; TEMP 36.7; O2SAT 97
== END 2025-07-29 21:21 | disposition home or self-care (01) ==
PROVIDERS: Emergency Provider Emergency Medicine; PCP Internal Medicine
DX: R60.0 Localized edema (principal); M79.605 Pain in left leg; I10 Essential (primary) hypertension; Z79.899 Other long term (current) drug therapy
CPT/HCPCS: 93971; 99284

== ENCOUNTER → 2025-07-29 18:42 | Outpatient (BNV) | payer MEDICARE, SELFPAY | PROVIDERS: Emergency Provider Emergency Medicine; PCP Internal Medicine; Visit Provider Specialist | DX: M79.662 Pain in left lower leg (principal) | CPT/HCPCS: 93971 ==

== ENCOUNTER 2025-09-01 13:07 | Outpatient (AMB) | payer MEDICARE, SELFPAY ==
[2025-09-01 13:10] VITALS: BP 122/60; PULSE 76; O2SAT 96; BMI 27.1
--- NOTE | 2025-09-01 13:10 | AM.OFFWIN_ITS ---
Intake Vital Signs 09/01/25 13:10 Height 5 ft 8 in Weight 178 lb BMI 27.1 BP 122/60 Blood Pressure Location Lt brachial Position Sitting Pulse 76 Pulse Source Pulse Oximeter Pulse Oximetry (%) 96 Oxygen Delivery Method Room Air Intake Visit Reasons: ep lower left side pain Intake Note: Patient presents c/o left groin pain x2 days related to trying to lift a 150lb basket. Patient Tobacco Use Status: Never used Tobacco Allergies atorvastatin (Lipitor) Adverse Reaction (Unknown, Verified 09/01/25 13:15) muscle pain Do you need a note to return to daycare/school/sports/work: No HPI HPI Comments History of Present Illness Details History of Present Illness - The patient is an 84-year-old male pre senting with left groin pain following lifting a heavy object. - The pain started two days ago after li fting a 150-pound flower pot. - The patient reports a bulge in the lef t groin area - No medications have been taken for the pain yet. Review of Systems - Musculoskeletal: Reports left groin pa in, denies any other musculoskeletal symptoms. All systems reviewed and are unremarkable except as noted in HPI Physical Exam General: Cooperative, healthy appearing, comfortable, no acute distress and well developed Orientation: Patient oriented x3 Limitations: No limitations Head: Normal to inspection Ears: Hearing grossly normal bilaterally Nose: Normal External nose present Face and sinus: Normal facial exam Eyes: Appearance normal, both eyes and all related structures Neck: Normal visual inspection and Yes full ROM Respiratory: Normal respiratory effort and able to speak in complete sentences. Abdominal: TTP LLQ abdominal wall : No palpable hernia in left inguinal area upon standing Skin: No rashes or lesions noted Neuro: Patient oriented x3 Extremities: Normal to inspection [facility] Medical History Prostate CA Bilateral lower extremity edema Venous stasis of lower extremity Hyperlipidemia HTN (hypertension) BPH (benign prostatic hyperplasia) Surgical History H/O colonoscopy No pertinent past surgical history Family History Father No problems noted. Mother No problems noted. Social History Housing: House Patient Tobacco Use Status: Never used Tobacco e-Cigarette/Vaping Use: Never Used Second Hand Smoke Exposure: No service: No Current occupational status: retired Cognitive needs: No Hearing needs: Yes Vision needs: Yes Physical Exam Vital Signs: Last Vital Signs Pulse 76 09/01/25 13:10 BP 122/60 09/01/25 13:10 Pulse Ox 96 09/01/25 13:10 Oxygen Delivery Method Room Air 09/01/25 13:10 BMI result Body Mass Index 27.1 Assessment & Plan Assessment & Plan (1) Sprain of abdominal wall: Code(s): S39.011A - Strain of muscle, fascia and tendon of abdomen, initial encounter Qualifiers: Encounter type: initial encounter Qualified Code(s): S39.011A - Strain of muscle, fascia and tendon of abdomen, initial encounter Plan: Patient was informed and verbally consented to the use of an ambient scribe for clinic note documentation during this visit. Musculoskeletal Strain - Due to the location and physical exam finding, this does not appear to be a hernia, it is painful in the abdominal muscles of the LLQ rather than near the umbilicus or inguinal area. - Recommended use of Voltaren gel for topical pain relief. - Advised oral ibuprofen as an alternative for pain management. - Follow-up with primary care physician if symptoms do not improve in a couple of weeks. - Advised to visit the emergency room if symptoms worsen significantly. Coding Level of Care Code Est Pt Level 3 (31632) Diagnoses Strain of abdominal wall, initial encounter S39.011A Encounter type: initial encounter
== END 2025-09-01 13:49 | disposition home or self-care (01) ==
PROVIDERS: PCP Internal Medicine; Visit Provider Physician Assistant
DX: S39.011A Strain of muscle, fascia and tendon of abdomen, initial encounter (principal)

== ENCOUNTER → 2025-09-01 13:07 | Outpatient (BNVA) | payer MEDICARE, SELFPAY | PROVIDERS: PCP Internal Medicine; Visit Provider Physician Assistant | DX: S39.011A Strain of muscle, fascia and tendon of abdomen, initial encounter (principal); X50.0XXA Overexertion from strenuous movement or load, initial encounter; Y93.9 Activity, unspecified; Y92.9 Unspecified place or not applicable | CPT/HCPCS: 99212 ==

== ENCOUNTER 2025-09-26 10:18 | Outpatient (AMB) | payer MEDICARE, SELFPAY ==
[2025-09-26 10:23] VITALS: BP 134/74; PULSE 66; RESP 16; TEMP 36.7; O2SAT 99; BMI 27.1
--- NOTE | 2025-09-26 10:23 | A.OFFPC_ITS ---
Vital Signs 09/26/25 10:23 Height 5 ft 8 in Weight 178 lb BMI 27.1 BP 134/74 Blood Pressure Location Lt brachial Position Sitting Respiration 16 Pulse 66 Pulse Source Pulse Oximeter Temp 98.1 F Temp Source Oral Pulse Oximetry (%) 99 Oxygen Delivery Method Room Air Intake Visit Reasons: Annual PE - see comments Intake Note: Pt is here today for PE. Allergies atorvastatin (Lipitor) Adverse Reaction (Unknown, Verified 09/26/25 10:29) muscle pain Tobacco use date assessed: 09/26/25 Fall risk assessment: No Falls in past year Last assessed Fall Risk: 09/26/25 Dental Screening Dental Screen Date: 05/12/25 HPI Annual PE - see comments HPI Details Pt presents for PE. He completed physical therapy for left shoulder pain and is feeling slightly better. Patient is established with urology for prostate CA and PSA has been stable. Patient going to [place] for 5 months [facility] Medical History Prostate CA Bilateral lower extremity edema Venous stasis of lower extremity Hyperlipidemia HTN (hypertension) BPH (benign prostatic hyperplasia) Surgical History H/O colonoscopy No pertinent past surgical history Family History Father No problems noted. Mother No problems noted. Social History Housing: House Patient Tobacco Use Status: Never used Tobacco e-Cigarette/Vaping Use: Never Used Second Hand Smoke Exposure: No service: No Current occupational status: retired Cognitive needs: No Hearing needs: Yes Vision needs: Yes Questionnaire Thrive Questionnaire Date Thrive assessed: 02/07/25 CHICO-7 AMB Questionnaire CHICO-7 Date CHICO - 7 assessed: 05/12/25 Source: Developed by Drs. Kristofer Tatum, Francy Covington, Akash Chávez and colleagues, with an educational lubna from [employer] Review of Systems Const All systems reviewed & are unremarkable except as noted in HPI and below Eyes Reports no additional complaints ENT Reports no additional complaints Card Reports no additional complaints Resp Reports no additional complaints GI Reports no additional complaints Reports no additional complaints Physical exam (Primary Care) Vital Signs: Last Vital Signs Temp 98.1 F 09/26/25 10:23 Pulse 66 09/26/25 10:23 Resp 16 09/26/25 10:23 BP 134/74 09/26/25 10:23 Pulse Ox 99 09/26/25 10:23 Oxygen Delivery Method Room Air 09/26/25 10:23 BMI result Body Mass Index 27.1 Tobacco/Smoking Status: Tobacco use Status Tobacco use date assessed 09/26/25 09/26/25 10:30 Patient Tobacco Use Status Never used Tobacco 09/26/25 10:24 e-Cigarette/Vaping Use Never Used 09/26/25 10:24 Thrive Assessment: Date of Thrive Assessment Date Thrive assessed 02/07/25 09/26/25 10:24 Const General: no acute distress HENMT Head: Yes normal to inspection Ears: TM's normal bilaterally Face and sinus: Yes normal facial exam Throat: Yes posterior oropharynx normal Eyes General: appearance normal, both eyes and all related structures Neck Neck: Yes no lymphadenopathy and Yes supple Resp Effort & Inspection: normal respiratory effort Auscultation: clear to auscultation bilaterally Cardio Rhythm: regular rhythm Heart sounds: S1 normal heart sound present and S2 normal heart sound present GI Inspection: Yes normal to inspection Palpation (GI): Soft to palpation Percussion: Yes normal to percussion Auscultation: normal bowel sounds Coding Level of Care Code Est Pt Prev Care >65y(94442) Diagnoses Primary hypertension I10 Hypertension type: primary hypertension Hyperlipidemia E78.5 Prostate CA C61 Annual physical exam Z00.00 Bilateral lower extremity edema R60.0 Assessment & Plan Assessment & Plan (1) HTN (hypertension): Code(s): I10 - Essential (primary) hypertension Category: Medical Qualifiers: Hypertension type: primary hypertension Qualified Code(s): I10 - Essential (primary) hypertension Plan: Continue current medications (2) Hyperlipidemia: Code(s): E78.5 - Hyperlipidemia, unspecified Category: Medical Plan: Continue statin (3) Prostate CA: Comment: s/p Casodex and RTx 02/07, f/u PVU, undetected PSA 05/09 Code(s): C61 - Malignant neoplasm of prostate Category: Medical Plan: Follow-up with urology (4) Annual physical exam: Code(s): Z00.00 - Encounter for general adult medical examination without abnormal findings Category: Medical Plan: Well-balanced diet regular physical activity discussed with the patient (5) Bilateral lower extremity edema: Comment: Due to venous stasis, controlled with compression knee highs Code(s): R60.0 - Localized edema Category: Medical Plan: Continue furosemide and compression knee-highs Orders: Orders Hemoglobin A1c 6 Months E78.5 - Hyperlipidemia, unspecified, I10 - Essential (primary) hypertension Complete Blood Count Auto Diff 6 Months E78.5 - Hyperlipidemia, unspecified, I10 - Essential (primary) hypertension Lipid Panel 6 Months E78.5 - Hyperlipidemia, unspecified, I10 - Essential (primary) hypertension Vitamin D 25-OH Total 6 Months E78.5 - Hyperlipidemia, unspecified, I10 - Essential (primary) hypertension Comprehensive [place]. Panel Fast 6 Months E78.5 - Hyperlipidemia, unspecified, I10 - Essential (primary) hypertension TSH reflex Free T4 6 Months E78.5 - Hyperlipidemia, unspecified, I10 - Essential (primary) hypertension
== END 2025-09-26 11:06 | disposition home or self-care (01) ==
LOC: HO.HMCC 10:18
PROVIDERS: PCP Internal Medicine; Visit Provider Internal Medicine
DX: Z00.00 Encounter for general adult medical examination without abnormal findings (principal); I10 Essential (primary) hypertension; E78.5 Hyperlipidemia, unspecified; C61 Malignant neoplasm of prostate; R60.0 Localized edema

== ENCOUNTER → 2025-09-26 10:18 | Outpatient (BNVA) | payer MEDICARE, SELFPAY | PROVIDERS: PCP Internal Medicine; Visit Provider Internal Medicine | DX: Z00.00 Encounter for general adult medical examination without abnormal findings (principal); I10 Essential (primary) hypertension; E78.5 Hyperlipidemia, unspecified; C61 Malignant neoplasm of prostate; R60.0 Localized edema | CPT/HCPCS: 99397 ==